=== PATIENT | male | born 1955 | race Hispanic/Latino ===

== ENCOUNTER 2017-10-12 11:20 | Inpatient (IN) | payer OTHER ==
--- NOTE | 2017-10-12 11:43 | RAD ---
FRONTAL VIEW CHEST: INDICATION: Dyspnea. FINDINGS: There is diffuse alveolar opacity and interstitial prominence throughout each lung. The cardiac silh ouette is mildly enlarged. There is engorgement of the pulmonary vasculature. No significant effusi on or discrete pneumothorax. IMPRESSION: Diffuse abnormal pulmonary parenchymal opacities may be on the basis of diffuse atypical pneumonia ve rsus pulmonary edema. Correlate clinically as well as recommend imaging followup for continued asses sment. POS: [facility]
[2017-10-12 12:03] LABS: Hemoglobin 4.7 g/dL (14.0-18.0); Mean Corpuscular Hemoglobin 18.3 pg (27.0-31.0); Mean Corpuscular Volume 70.2 fl (80.0-94.0); Mean Platelet Volume 11.2 fL (7.4-10.4); Platelet Count 151 thou/uL (130-400); RBC Distribution Width 19.4 % (11.5-14.5); Red Blood Cell (RBC) Count 2.58 mill/uL (4.70-6.10); White Blood Cell (WBC) Count 16.5 thou/uL (4.8-10.8)
[2017-10-12 12:15] LABS: Acanthocytes SLIGHT = 1-5 cells (100X) (None Seen); Anisocytosis SLIGHT = 6-15 cells (100X) (0-5/hpf); Band 1 % (5-11); Hypochromia SLIGHT = 6-15 cells (100X) (0-5/hpf); Lymphocytes 3 % (21-51); MDiff Complete? YES; Microcytosis SLIGHT = 6-15 cells (100X) (0-5/hpf); Monocytes 3 % (0-10); Neutrophil 93 % (42-75); Ovalocytes SLIGHT = 2-5 cells (100X) (0-1/hpf); PLT Morphology Comment 1; Polychromasia SLIGHT = 2-3 cells (100X) (0-2/hpf); Tear Drops SLIGHT = 2-5 cells (100X) (0-1/hpf)
[2017-10-12 12:16] LABS: ALT (SGPT) 7 U/L (8-55); AST (SGOT) 23 U/L (5-34); Albumin 3.2 g/dL (3.4-4.8); Alkaline Phosphatase 134 U/L (40-150); Anion Gap 18 mmol/L (10-20); BUN (Urea Nitrogen) 10 mg/dL (8.4-25.7); CK (CPK) 77 U/L (30-200); Calc. Creatinine Clearance 0 mL/min (70-130); Calcium 8.7 mg/dL (7.8-10.44); Carbon Dioxide 16 mmol/L (23-31); Chloride 103 mmol/L (98-107); Estimated GFR-MDRD Greater than 90; Globulin 3.1 g/dL (2.4-3.5); Glucose 122 mg/dL (80-115); Protein, Total 6.3 g/dL (5.8-8.1); Sodium 133 mmol/L (136-145)
[2017-10-12] MEDS ORDERED: ISOVUE-370 76%-LOCM 1 ML ONE (12:20)
[2017-10-12 12:21] LABS: CKMB 3.1 ng/mL (0-6.6); Troponin I 0.177 ng/mL (< 0.028)
[2017-10-12 13:04] LABS: INR-International Normal Ratio 1.6; Prothrombin Time 19.3 SEC (12.0-14.7)
[2017-10-12 13:10] LABS: Magnesium 1.8 mg/dL (1.6-2.6)
[2017-10-12] MEDS ORDERED: Pantoprazole 40 MG VIAL ONE (13:18)
[2017-10-12 13:29] LABS: Clarity Clear (Clear); Specific Gravity, Urine 1.015 (1.005-1.030)
[2017-10-12 13:30] LABS: Bilirubin Moderate (Negative); Glucose, Urine (Dipstick) Negative (Negative); Leukocyte Negative (Negative); Nitrite Negative (Negative); Protein, Urine (Dipstick) 30 mg/dL (Neg-Trace)
[2017-10-12 13:31] LABS: Blood, Urine Negative (Negative)
[2017-10-12 13:45] LABS: Bacteria/HPF None Seen HPF (None Seen); Hyaline Casts/LPF 0-3 HYALINE CAST LPF (0-3 Hyaline); Pathc Cast-AUWi Flag 0.13 (0-2.49); RBC/HPF 0-3 HPF (0-3); Squamous Epithelial 0-3 HPF (0-3); WBC/HPF 0-3 HPF (0-3)
[2017-10-12] MEDS ORDERED: Octreotide Acetate 1,250 MCG in Sodium Chloride 0.9% 250 ML 250 ML IVPB SCH (13:45)
[2017-10-12] MEDS ORDERED: Lidocaine 1% PF 5 ML VIAL ONE (13:52)
[2017-10-12] MEDS ORDERED: PROPOFOL 200 MG/20 ML VIAL ONE (13:52)
--- NOTE | 2017-10-12 14:06 | CT ---
CT ABDOMEN AND PELVIS WITH IV CONTRAST: Date: 10/12/17 HISTORY: Diarrhea, lower abdominal pain, shortness of breath. FINDINGS: There are small bilateral pleural effusions. Patchy infiltrates are seen in the visualized lung field s. There is a moderate amount of free fluid in the abdomen and pelvis consistent with ascites. Calcif ied gallstones are present. No free air or lymphadenopathy seen. The liver demonstrates irregular surface and shrinking of the right lobe consistent with cirrhosis. The spleen is enlarged, measuring 14.8 cm in length. The pancreas, adrenal glands, and kidneys are unremarkable. Vascular calcifications are present without evidence of aneurysmal dilatation of the abdominal aorta. There are degenerative changes in the spine. IMPRESSION: 1. Bilateral pleural effusions with patchy infiltrates in lower lung chaudhry. 2. Ascites. 3. Cirrhosis of liver. 4. Splenomegaly. 5. Cholelithiasis. POS: DIEGO
[2017-10-12 14:37] LABS: Iron 23 ug/dL (65-175); Iron Binding Capacity, Total 393 mcg/dL (261-462)
[2017-10-12] MEDS ORDERED: Octreotide Acetate 100 MCG/ML VIAL ONE (14:40)
[2017-10-12] MEDS ORDERED: metroNIDAZOLE 500 MG/100 ML BAG ONE (15:11)
[2017-10-12] MEDS ORDERED: Piperacillin/Tazobactam 4.5 GM in Sodium Chloride 0.9% 100 ML IVPB SCH (15:45)
[2017-10-12] MEDS ORDERED: metroNIDAZOLE 500 MG in Premix Bag 1 BAG IVPB SCH (15:45)
[2017-10-12 16:52] LABS: Lactic Acid 1.7 mmol/L (0.5-2.2)
[2017-10-12 17:31] LABS: Troponin I 0.194 ng/mL (< 0.028)
[2017-10-12] MEDS ORDERED: Promethazine HCl 25 MG/ML VIAL IM PRN (18:55)
[2017-10-12] MEDS ORDERED: Promethazine HCl 25 MG/ML VIAL SLOW IVP PRN (18:55)
[2017-10-12] MEDS ORDERED: Ondansetron HCl/PF 4 MG/2 ML Vial IVP PRN ×2 (18:55→21:49)
--- NOTE | 2017-10-12 21:38 | HP ---
PRIMARY CARE PHYSICIAN: Patient recently moved to [place]. Does not have a primary care physician at this time. CHIEF COMPLAINT: Generalized weakness with shortness of breath of 2 days' duration. HISTORY OF PRESENT ILLNESS: Patient is a 61-year-old male with cirrhosis with ongoing tobacco abuse presented to an urgent care clinic with shortness of breath that started this morning. The shortness of breath was present on mild exertion. He denied any chest pain or palpitations. He felt lightheaded; however, denies any syncope. No nausea, vomiting, hematochezia, hematemesis or abdominal discomfort reported. He was seen at the [facility] and had an EKG that was abnormal. He was then sent to the emergency room for evaluation. In the emergency room, his initial vital signs showed temperature 99.7, respiration of 18, pulse rate of 129 with a blood pressure of 128/58 with O2 saturation 95% on room air. His initial H&H was 4.7/18.1 with lactic acid of 6.7. His BNP was 1041 with troponin of 0.177. His EKG showed sinus tachycardia with nonspecific ST-T wave changes in the lateral leads. He was started on Protonix and octreotide drip. PAST MEDICAL HISTORY: 1. Chronic alcoholism. 2. Cirrhosis, diagnosed 3 years ago. The patient is currently on no medications. 3. Hypertension. 4. Ongoing tobacco abuse. PAST SURGICAL HISTORY: EGD and colonoscopy in the past. ALLERGIES: No known drug allergies. CURRENT HOME MEDICATIONS: Aleve as needed. SOCIAL HISTORY: Patient drinks liquor on a daily basis. He smokes 1 pack a day. FAMILY HISTORY: Negative for premature coronary artery disease. REVIEW OF SYSTEMS: The following complete review of systems was negative, unless otherwise mentioned in the HPI or below: Constitutional: Weight loss or gain, ability to conduct usual activities. Skin: Rash, itching. Eyes: Double vision, pain. ENT/Mouth: Nose bleeding, neck stiffness, pain, tenderness. Cardiovascular: Palpitations, dyspnea on exertion, orthopnea. Respiratory: Shortness of breath, wheezing, cough, hemoptysis, fever or night sweats. Gastrointestinal: Poor appetite, abdominal pain, heartburn, nausea, vomiting, constipation, or diarrhea. Genitourinary: Urgency, frequency, dysuria, nocturia. Musculoskeletal: Pain, swelling. Neurologic/Psychiatric: Anxiety, depression. Allergy/Immunologic: Skin rash, bleeding tendency. PHYSICAL EXAMINATION: VITAL SIGNS: As discussed above. GENERAL: A 61-year-old male currently is status post emergent EGD. HEENT: Atraumatic, normocephalic. Sclerae icteric with pale conjunctivae. No oral lesion. NECK: Supple, no JVD appreciated. No carotid bruit. LUNGS: Showed scattered rales at bases. No wheezing. There were also scattered rhonchi. HEART: S1, S2 present, tachycardic. A 2/6 systolic murmur over the mitral area. ABDOMEN: Soft, mild generalized tenderness. No rebound, guarding, no costovertebral angle tenderness. EXTREMITIES: A 2+ edema in bilateral lower extremities. No calf tenderness. SKIN: Warm and dry. LYMPH NODES: No palpable lymph nodes in the neck. PERIPHERAL VASCULAR: Radial pulses palpable bilaterally. MUSCULOSKELETAL: No joint swelling or tenderness. LABORATORY FINDINGS: CBC showed WBC 16.5 with hemoglobin 4.7, platelet count 151. INR 1.6, PT 19.3. Chemistries showed sodium 133, potassium 4, chloride 103, bicarbonate 16, BUN 10, creatinine 0.82, lactic acid 6.7. Iron of 23, TIBC 393. Ferritin was 19.1. Troponin 0.17 with BNP 1041. Lipase was normal. Stool for occult blood was positive. IMAGING: CT scan of the abdomen and pelvis with IV contrast showed bilateral pleural effusion with patchy infiltrates in the lower lung chaudhry. There was also ascites with cirrhosis of the liver, splenomegaly and cholelithiasis. EKG by my review as discussed above. Chest x-ray by my review showed the atypical pneumonia versus pulmonary edema. IMPRESSION: 1. Symptomatic anemia. 2. Acute on chronic gastrointestinal bleeding with Anemia due to GI blood loss. 3. Community-acquired pneumonia, suspected pneumococcal. 4. Lactic acidosis, probably secondary to severe anemia. 5. Abnormal EKG with elevated troponin secondary to severe anemia. 6. Elevated BNP secondary to high output congestive heart failure. 7. Bilateral pleural effusion. 8. Cirrhosis of the liver secondary to chronic alcoholism. Rule out other etiologies. 9. Ascites. 10. Coagulopathy secondary to cirrhosis. 11. Splenomegaly. 12. Cholelithiasis. 13. Ongoing tobacco abuse. 14. Hyponatremia. 15. Metabolic acidosis secondary to elevated lactate. 16. Iron deficiency anemia. 17. Leukocytosis, probably secondary to sepsis due to pneumonia. PLAN: Patient will be monitored in the IMCU. Patient just underwent EGD. Outpatient EGD report pending at this time. We will continue Protonix drip. Octreotide drip has been discontinued. Empiric antibiotics for pneumonia. Gentle IV hydration, thiamine, folic acid, multivitamins. We will monitor H&H. Plan of care was discussed with the patient and the family at the bedside. They stated understanding. MTDD
[2017-10-12] MEDS ORDERED: Lorazepam 0.5 MG TAB PO PRN (21:49)
[2017-10-12] MEDS ORDERED: Calcium Carbonate 500 MG ChewTAB PO PRN (21:49)
[2017-10-12] MEDS ORDERED: cefTRIAXone\\ROCEPHIN 1 GM in Sodium Chloride 0.9% 100 ML IVPB SCH (21:49)
[2017-10-12] MEDS ORDERED: Ondansetron ODT 4 MG TAB PO PRN (21:49)
[2017-10-12] MEDS ORDERED: Loratadine 10 MG TAB PO PRN (21:49)
[2017-10-12] MEDS ORDERED: Polyethylene Glycol 3350 17 GM Packet PO PRN (21:49)
[2017-10-12] MEDS ORDERED: Eucerin (Mineral Oil/Petrolatum,White) 30 gm Jar TOP PRN (21:49)
[2017-10-12] MEDS ORDERED: Simethicone Chewable 80 MG TAB PO PRN (21:49)
[2017-10-12] MEDS ORDERED: Mag-Al 1200 mg/1200 mg/30 ML UDCUP PO PRN (21:49)
[2017-10-12] MEDS ORDERED: Furosemide 20 MG/2 ML VIAL SLOW IVP PRN (21:49)
[2017-10-12] MEDS ORDERED: Nitroglycerin 0.4 MG TAB (25 Tab Bottle) PO PRN (21:49)
[2017-10-12] MEDS ORDERED: traMADol HCl 50 MG TAB PO PRN (21:49)
[2017-10-12] MEDS ORDERED: Doxycycline 100 MG CAP PO SCH (22:00)
--- NOTE | 2017-10-12 22:27 | CON ---
DATE OF CONSULTATION: 10/12/2017 CHIEF COMPLAINT: Shortness of breath and weakness. HISTORY OF PRESENT ILLNESS: Mr. Sim is a 61-year-old man who reports he felt very fatigued yester day and then this morning became short of breath with minimal exertion. [facility]. He was found to have severe anemia and dark stools by rectal exam and GI was con sulted to evaluate this further. He has had no nausea or vomiting. No abdominal pain. He has had 2 or 3 loose dark stools daily over the last week. He was diagnosed with cirrhosis around 3 years ago . He underwent EGD and colonoscopy at that time. He was told he had no varices. Colonoscopy was re portedly normal. He had been drinking alcohol heavily daily at that point. He quit drinking for a y ear, but then over the last year has been drinking again 3-4 drinks of vodka daily just on the weeken ds. His legs have been swelling over the last week. He did have edema in the past when he was recen tly diagnosed with cirrhosis and this was treated with diuretics. He quit drinking and he did well w ithout any problems and now he has decompensated again. PAST MEDICAL HISTORY: Cirrhosis of the liver and alcohol abuse. PAST SURGICAL HISTORY: EGD and colonoscopy back around 3 years ago in [place] and the colonoscopy was normal per his report and his 's report. FAMILY HISTORY: Negative for GI malignancy. SOCIAL HISTORY: He drinks vodka 3-4 drinks per day, some days and sometimes just on the weekends. N o smoking, no drugs. ALLERGIES: No known drug allergies. MEDICATIONS AT HOME: He takes ibuprofen 400 mg around once per week. He has taken this for the swel ling in his legs he reports. REVIEW OF SYSTEMS: Negative x10 systems reviewed except as stated in the history of present illness. PHYSICAL EXAMINATION: VITAL SIGNS: Blood pressure 112/54, pulse 117, temperature 99.6. GENERAL: He is in no acute distress. He is alert and oriented x3. HEENT: Eyes have no scleral icterus. NEUROLOGIC: He has no asterixis. OROPHARYNX: Clear, without lesions. NECK: No cervical or supraclavicular lymphadenopathy. LUNGS: Had bilateral expiratory wheezes. HEART: Tachycardic S1, S2. ABDOMEN: Soft, nontender, nondistended. Bowel sounds are present. EXTREMITIES: 1+ pitting lower extremity edema. RECTAL: Revealed black to very dark brown stool in the rectal vault. This did not appear to be larg e volume melena, however. LABORATORY DATA: White blood cell count 16.5, hemoglobin 4.7, platelets 151. INR 1.6. Iron 19.9, T IBC 393. Iron is 23. Ferritin is 19.9. Creatinine 0.82, bilirubin 5.0, albumin 3.2, AST 23, ALT 7, alkaline phosphatase 134. White blood cell count 16.5, hemoglobin 4.7, platelets 151. IMPRESSION: 1. Symptomatic anemia secondary to acute plus/minus chronic GI blood loss. He has hemoglobin of 4.7 . However, the amount of bleeding described does not match the severity of the anemia. He may have a more likely chronic blood loss. He has had no hematemesis. 2. Alcoholic cirrhosis by history. He appears decompensated with elevated bilirubin, elevated INR a nd low albumin. The creatinine is normal. He has no encephalopathy at this time. He does have lowe r extremity edema, but not significant ascites, otherwise. RECOMMENDATIONS: 1. Octreotide drip. 2. Proton pump inhibitor drip. 3. EGD. 4. IV antibiotics. 5. Send labs for evaluation for other causes of liver disease. 6. Check alpha fetoprotein and ultrasound of the liver for hepatoma screening. ADDENDUM He did have a CT scan in the emergency room that showed cirrhotic changes in the liver. Cholelithias is was incidentally noted. Moderate amount of free fluid in the abdomen and pelvis was seen.
--- NOTE | 2017-10-12 22:41 | OP ---
DATE OF PROCEDURE: 10/12/2017 PROCEDURE: Esophagogastroduodenoscopy with control of hemorrhage. PREOPERATIVE DIAGNOSIS: Symptomatic anemia and GI bleed and cirrhosis. OPERATIVE NOTE: Informed consent was obtained from the patient. He was sedated with total intraveno us anesthesia. The bite block was placed and the endoscope was advanced easily to the second portion of the duodenum and retroflexion was performed in the stomach. The esophagus was normal. The GE ju nction was normal. There were no esophageal varices. There was moderately severe portal hypertensiv e gastropathy in the body and fundus of the stomach. Gastric antral vascular ectasia was present wit h a typical watermelon appearance. There was mild intermittent active bleeding from these sites note d during the procedure. The pylorus and first portion of the duodenum were normal. There was modera tely severe erosive duodenitis with multiple 4-6 mm ulcerations in the second portion of the duodenum . There was no stigmata of recent bleeding around these areas. The more severe areas of gastric ant ral vascular ectasia were treated with argon plasma coagulation with good hemostasis confirmed. A la rge area was treated; however, this will require multiple sessions to treat this further. IMPRESSION: 1. 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 This is the most likely source for the anemia. A large area in the antrum was cauterized with argon plasma coagulation. Th is will require followup endoscopy to cauterize this further. 2. Moderately severe portal hypertensive gastropathy. 3. Severe erosive duodenitis. 4. No varices were present in the stomach or esophagus. RECOMMENDATIONS: 1. Check H. pylori antibody given the erosive duodenitis. 2. Avoid NSAIDs. 3. Alcohol cessation. 4. Follow up EGD in 3-4 weeks to treat the gastric antral vascular ectasia further. 5. Proton pump inhibitor. 6. Discontinue octreotide.
[2017-10-12] MEDS ORDERED: Sodium Ferric Gluconate 250 MG in Sodium Chloride 0.9% 250 ML 250 ML IVPB SCH (22:45)
[2017-10-12 22:53] LABS: Hemoglobin 5.9 g/dL (14.0-18.0); Platelet Count 86 thou/uL (130-400)
[2017-10-13] MEDS: Pantoprazole 80 MG in Sodium Chloride 0.9% 100 ML IVP SCH ×2 (01:59→13:06)
[2017-10-13 04:48] LABS: #Eosinphils 0.1 thou/uL (0.0-0.7); #Lymphocytes 1.2 thou/uL (1.20-3.40); #Monocytes 1.2 thou/uL (0.11-0.59); #Neutrophils 7.6 thou/uL (1.40-6.50); %Basophils 0.1 % (0.0-1.0); %Eosinophils 0.7 % (0.0-10.0); %Lymphocytes 11.9 % (21.0-51.0); %Monocytes 12.2 % (0.0-10.0); %Neutrophils 75.1 % (42.0-75.0); Mean Corpuscular Hemoglobin 22.3 pg (27.0-31.0); Mean Corpuscular Volume 76.8 fl (80.0-94.0); Mean Platelet Volume 11.6 fL (7.4-10.4); Platelet Count 92 thou/uL (130-400); RBC Distribution Width 20.4 % (11.5-14.5); Red Blood Cell (RBC) Count 3.15 mill/uL (4.70-6.10); White Blood Cell (WBC) Count 10.1 thou/uL (4.8-10.8)
[2017-10-13 05:05] LABS: ALT (SGPT) 7 U/L (8-55); AST (SGOT) 20 U/L (5-34); Albumin 2.8 g/dL (3.4-4.8); Alkaline Phosphatase 109 U/L (40-150); Anion Gap 12 mmol/L (10-20); BUN (Urea Nitrogen) 11 mg/dL (8.4-25.7); Bilirubin, Total 4.9 mg/dL (0.2-1.2); Calc. Creatinine Clearance 114 mL/min (70-130); Carbon Dioxide 21 mmol/L (23-31); Chloride 107 mmol/L (98-107); Estimated GFR-MDRD Greater than 90; Globulin 2.5 g/dL (2.4-3.5); Glucose 115 mg/dL (80-115); Magnesium 1.5 mg/dL (1.6-2.6); Phosphorus 2.8 mg/dL (2.3-4.7); Potassium 3.5 mmol/L (3.5-5.1); Protein, Total 5.3 g/dL (5.8-8.1); Sodium 136 mmol/L (136-145)
[2017-10-13 05:22] LABS: HBSAg Index 0.22 S/CO (0-0.99); Hep B Core Total Ab Non-Reactive (NonReactive); Hep B Core Total Index 0.23 S/CO (0-0.79); Hep B Surf Ag Non-Reactive S/CO (NonReactive); Hep C IgG Ab Non-Reactive (NonReactive); Hep C Index 0.22 S/CO (0-0.79)
[2017-10-13 06:09] LABS: HBSAB Concentration 53.01 mIU/mL; Hep B Surf AB Reactive (NonReactive)
--- NOTE | 2017-10-13 07:53 | ULT ---
RIGHT UPER QUADRANT ULTRASOUND: DATE: 10/13/17. COMPARISON: None. HISTORY: Cirrhosis and jaundice. TECHNIQUE: Multiplanar, sainz scale sonographic imaging of the right upper quadrant obtained. FINDINGS: The hepatic parenchyma is heterogeneous and the peripheral contour of the liver is irregular, consist ent with the provided history of cirrhosis. There is small/moderate volume ascites in the perihepati c region. There is slow flow within the portal vein. Partially visualized right pleural effusion no brennan. Nonspecific gallbladder wall thickening is noted. Cholelithiasis is noted as well. The right kidney is only partially imaged and appears grossly unremarkable. CBD is not discretely vi sualized on this exam. IMPRESSION: Cirrhotic liver. Ascites. Cholelithiasis with gallbladder wall thickening. Gallbladder wall thicke mil is likely on the basis of liver disease. Clinical correlation is required. The right upper quadrant is better assessed on CT exam performed 10/12/17. POS: [facility]
[2017-10-13] MEDS ORDERED: Doxycycline 100 MG CAP PO SCH ×2 (09:00→14:00)
[2017-10-13] MEDS ORDERED: Magnesium Sulfate 2 GM in Sodium Chloride 0.9% 100 ML IVPB SCH (09:45)
[2017-10-13] MEDS: Cyanocobalamin (Vitamin B-12) 1,000 MCG TAB PO SCH (09:45)
[2017-10-13] MEDS: Folic Acid 1 MG TAB PO SCH (09:45)
[2017-10-13] MEDS: Multivit, Therapeutic 1 TAB PO SCH (09:45)
[2017-10-13] MEDS ORDERED: Magnesium 2 GM/NS 0.9% 100 ML 2 GM in Premix Bag 1 BAG IVPB SCH (10:00)
[2017-10-13] MEDS ORDERED: Benzocaine 20% Spray 60 ML CAN ONE (11:11)
[2017-10-13] MEDS: Acetaminophen 325 MG TAB PO PRN ×3 (12:32→23:15)
[2017-10-13] MEDS ORDERED: cefTRIAXone\\ROCEPHIN 1 GM, Syringe 0.4 ML in Sterile Water 9.6 ML SLOW IVP SCH (13:00)
--- NOTE | 2017-10-13 13:42 | PDOC.PN ---
- Subjective Encounter Start Date: 10/13/17 Encounter Start Time: 13:00 Patient seen and examined. SOB + that somewhat improved with nebs. No overnight events - Objective Resuscitation Status: Resuscitation Status FULL:Full Resuscitation MAR Reviewed: Yes Vital Signs & Weight: Vital Signs (12 hours) Temp Pulse Resp BP BP BP BP 10/13/17 12:00 100.8 F H 115 H 24 H 126/58 L 133/65 10/13/17 10:37 115 H 22 H 10/13/17 08:00 100.0 F H 110 H 24 H 148/66 H 10/13/17 07:34 100.0 F H 110 H 24 H 148/66 H 10/13/17 04:28 135/69 10/13/17 04:12 99.4 F 111 H 22 H 135/69 142/69 H 151/57 H 10/13/17 02:27 99.2 F 108 H 18 130/66 10/13/17 02:02 109 H 20 121/71 Pulse Ox 10/13/17 12:00 90 L 10/13/17 10:37 96 10/13/17 08:00 90 L 10/13/17 07:34 89 L 10/13/17 04:28 10/13/17 04:12 10/13/17 02:27 96 10/13/17 02:02 95 I&O: 10/12/17 10/13/17 10/14/17 06:59 06:59 06:59 Intake Total 910 Output Total 500 Balance 410 Result Diagrams: 10/13/17 15:53 10/13/17 04:09 Radiology Reviewed by me: No (RUQ USG - cholelithiasis) EKG Reviewed by me: Yes (Tele ST) Phys Exam - Physical Examination Pt in mild resp distress Respiratory: no wheezing Bibasilar rales with scat rhonchi, Accessory muscle use + Cardiovascular: RRR, no rub Tachycardic, no heaves/pulsations Gastrointestinal: soft, positive bowel sounds mild gen tenderness Musculoskeletal: edema present (2 +) Neurological: non-focal, moves all 4 limbs Psychiatric: A&O x 3 Dx/Plan - Plan DVT proph w/SCDs IMPRESSION: 1. Symptomatic anemia. s/p 3 unit PRBC 2. Acute on chronic gastrointestinal bleeding with Anemia due to GI blood loss. 3. Community-acquired pneumonia, suspected pneumococcal. on Ceftriaxone/Doxy 4. Resp distress prob due to Volume overload/Pleural effusions. 5. Abnormal EKG with elevated troponin secondary to severe anemia. 6. Elevated BNP secondary to high output congestive heart failure. 7. Bilateral pleural effusion. 8. Cirrhosis of the liver secondary to chronic alcoholism. Rule out other etiologies. 9. Ascites. 10. Coagulopathy secondary to cirrhosis. 11. Splenomegaly. 12. Cholelithiasis. 13. Ongoing tobacco abuse. Counselled. 14. Hyponatremia. 15. Metabolic acidosis secondary to elevated lactate. 16. Iron deficiency anemia. 17. Leukocytosis, probably secondary to sepsis due to pneumonia. 18. Hypomagnessemia 19. Lactic acidosis, probably secondary to severe anemia. resolved PLAN: * Lasix 20 mg IV x 1 * Replace Mg * AM labs * Repeat HH later today * Consult Critical care * Cont current meds as below * Monitor for alcohol withdrawal. * Transfuse PRN if HH <7 - Will probably need Lasix prior to transfusion * Portable CXR today * Await Echo Laboratory Tests 10/13/17 04:09 Magnesium 1.5 L Review of Systems - Review of Systems Constitutional: fever Respiratory: SOB with Excertion. negative: Cough, Dry, Shortness of Breath, Hemoptysis, Pleuritic Pain, Sputum, Wheezing Cardiovascular: negative: chest pain, palpitations, orthopnea, paroxysmal nocturnal dyspnea, edema, light headedness - Medications/Allergies Allergies/Adverse Reactions: Allergies Allergy/AdvReac Type Severity Reaction Status Date / Time No Known Allergies Allergy Verified 10/12/17 22:05 Medications: Current Medications Acetaminophen (Tylenol) 325 mg PO Q6H PRN PRN Reason: Headache/Fever or Pain Last Admin: 10/13/17 12:32 Dose: 325 mg Al Hydroxide/Mg Hydroxide (Maalox) 30 ml PO Q6H PRN PRN Reason: Heartburn or Indigestion Albuterol/Ipratropium (Duoneb) 3 ml NEB [id number] PRN PRN Reason: SOB &/or Wheezing Last Admin: 10/13/17 10:37 Dose: 3 ml Albuterol/Ipratropium (Duoneb) 3 ml NEB [id number] PRN PRN Reason: SOB &/or Wheezing Calcium Carbonate (Tums) 1,000 mg PO Q4H PRN PRN Reason: Heartburn or Indigestion Cyanocobalamin (Vitamin B-12) 1,000 mcg PO DAILY FOR[facility]LY [facility], [facility] Last Admin: 10/13/17 09:45 Dose: 1,000 mcg Doxycycline Hyclate (Vibramycin) 100 mg PO BID [facility], [facility]1983 Folic Acid (Folvite) 1 mg PO 0900 [facility], [facility] Last Admin: 10/13/17 09:45 Dose: 1 mg Furosemide (Lasix) 40 mg PO DAILY-AC [facility] Furosemide (Lasix) 20 mg SLOW IVP Q8HR PRN PRN Reason: Resp distress Pantoprazole Sodium 80 mg/ (Sodium Chloride) 100 mls @ 10 mls/hr IVP INF [facility], [facility] Last Admin: 10/13/17 13:06 Dose: 100 mls Ceftriaxone Sodium 1 gm/ (Syringe 0.4 ml/ Sterile Water) 10 mls @ 120 mls/hr SLOW IVP 1300 [facility] Last Admin: 10/13/17 13:09 Dose: 10 mls Loratadine (Claritin) 10 mg PO DAILYPRN PRN PRN Reason: Sinus Symptoms Lorazepam (Ativan) 0.5 mg PO Q4H PRN PRN Reason: ASE >9 Mineral Oil/White Petrolatum (Eucerin Cream) 0 gm TOP BIDPRN PRN PRN Reason: Dry Skin Multivitamins (Theragran) 1 tab PO DAILY [facility] Last Admin: 10/13/17 09:45 Dose: 1 tab Nitroglycerin (Nitrostat) 0.4 mg PO Q5MIN PRN PRN Reason: Chest Pain Ondansetron HCl (Zofran Odt) 4 mg PO Q6H PRN PRN Reason: Nausea/Vomiting Ondansetron HCl (Zofran) 4 mg IVP Q6H PRN PRN Reason: Nausea/Vomiting Pneumococcal Polyvalent Vaccine (Pneumovax 23) 0.5 ml IM .ONCE ONE Stop: 10/14/17 09:01 Polyethylene Glycol (Miralax) 17 gm PO DAILY PRN PRN Reason: Constipation Simethicone (Mylicon Chewable) 80 mg PO PCHS PRN PRN Reason: Gas Pain Sodium Chloride (Flush - Normal Saline) 10 ml IVF Q12HR [facility] Last Admin: 10/13/17 09:45 Dose: 10 ml Sodium Chloride (Flush - Normal Saline) 10 ml IVF PRN PRN PRN Reason: Saline Flush Spironolactone (Aldactone) 25 mg PO BID-[facility] Thiamine HCl (Thiamine) 100 mg PO DAILY [facility] Last Admin: 10/13/17 09:45 Dose: 100 mg Tramadol HCl (Ultram) 50 mg PO Q8H PRN PRN Reason: Moderate Pain (4-6)
[2017-10-13] MEDS ORDERED: Furosemide 20 MG/2 ML VIAL SLOW IVP PRN (14:00)
--- NOTE | 2017-10-13 15:17 | RAD ---
PORTABLE CHEST ONE VIEW: Date: 10-13-17 Time: 2:51 p.m. History: Shortness of breath FINDINGS: Comparison made with exam from the previous day. Interval worsening of the bilateral infiltrates has occurred since the previous day's exam. No pneumo thoraces or large effusions are seen. The heart size is stable. POS: [facility]
[2017-10-13] MEDS: Doxycycline 100 MG CAP PO SCH (16:06)
[2017-10-13] MEDS: Clindamycin/D5W 600 MG in Premix Bag 1 BAG IVPB SCH ×2 (16:06→23:15)
[2017-10-13] MEDS: Spironolactone 25 MG TAB PO SCH (16:06)
[2017-10-13 16:09] LABS: Hemoglobin 6.9 g/dL (14.0-18.0)
--- NOTE | 2017-10-13 18:37 | PRG ---
DATE OF SERVICE: 10/13/2017 SUBJECTIVE: He feels like he is breathing better after receiving some Lasix today; however, he still is tachypneic. He has had no further black stool output. PHYSICAL EXAMINATION: VITAL SIGNS: Maximum temperature 101.2, pulse 114, respirations 26, blood pressure 139/52. GENERAL: He is tachypneic. He is not in acute distress. LUNGS: His lungs have scattered wheezes bilaterally. HEART: Tachycardic S1, S2. ABDOMEN: Soft, nontender, nondistended, bowel sounds are present. EXTREMITIES: 1+ pitting lower extremity edema. LABORATORY DATA: Creatinine 0.75, bilirubin 4.9, albumin 2.8. Alpha fetoprotein was 4. IMPRESSION: 1. Cirrhosis of the liver secondary to chronic alcohol use. He was actively drinking up until this hospital stay. 2. Gastrointestinal bleed. This appears to be more of a chronic bleed; however, he did have very da rk stools on presentation. Endoscopy showed gastric antral vascular ectasia. This was cauterized wi th argon plasma coagulation. However, we will require further cautery to treat this large area of va scular ectasias. 3. Hepatoma screening. Ultrasound is negative for liver mass. Alpha fetoprotein is normal. 4. Bilateral pulmonary infiltrates with fever. He is on broad-spectrum antibiotics for that. RECOMMENDATIONS: 1. Await viral hepatitis labs. 2. I would give another unit of blood in the morning. Since he is already significantly tachypneic and tachycardic and felt better after Lasix, I will hold off adding additional blood transfusion ann ght. He is feeling better than he was yesterday; however. 3. Change pantoprazole to oral administration. 4. We will start a low-salt diet to and he can advance diet as he tolerates. 5. Follow up in GI clinic in 2 weeks. We will need to plan followup endoscopy in 3-4 weeks to caute rize the gastric antral vascular ectasia further. 6. Alcohol cessation is advised. 7. I will sign off for now. Please call if GI can be of assistance.
--- NOTE | 2017-10-14 02:25 | CON ---
DATE OF CONSULTATION: 10/13/2017 HISTORY OF PRESENT ILLNESS: Sanford Sim is a 61-year-old [place] gentleman, history is obtain ed from talking to the patient, talking to his , who is at the bedside who was very helpful. Reason for consultation is bilateral bronchopneumonia, who has been admitted to the hospital with a G I bleed. He came in last night. GI has seen him and he underwent upper GI endoscopy. He has a longstanding history of alcoholic liver disease, drinking for many years, and still apparent ly drinking. Still smoking half pack a day, now is having difficulty breathing, coughing up some grossly purulent sputum. Denies any chest pain, chills, or sweats. PAST MEDICAL HISTORY: Hypertension, cirrhosis, chronic alcoholism. PAST SURGICAL HISTORY: EGD. ALLERGIES: None. CHRONIC MEDICATIONS: At home, ibuprofen as per the . SOCIAL HISTORY: Alcohol, tobacco abuse as noted, a pack a day. Presently unemployed. FAMILY HISTORY: Otherwise unremarkable. REVIEW OF SYSTEMS: Otherwise, extensive 10-point negative. SOCIAL HISTORY: He just recently moved from out of town. PHYSICAL EXAMINATION: VITAL SIGNS: Sats are 93% on 3 liters, respirations 14, temperature , blood pressure 120/68. LUNGS: Chest reveals bilateral rhonchi and crackles. CARDIAC: Sinus tachycardia. ABDOMEN: Ascites. LABORATORY DATA AND IMAGING: White count 10,000, H&H 7 and 24, platelet count is 92. Electrolytes a re normal. X-ray shows bilateral pleural effusion. Ultrasound of the abdomen shows chronic cirrhoti c liver with ascites. Please note I reviewed all report and x-rays personally. Cultures so far nega tive. IMPRESSION: 1. Upper gastrointestinal bleed. 2. Alcoholic liver disease. 3. Status post endoscopy for worsening bilateral pulmonary infiltrates, aspiration pneumonia. He jesus d evidence of portal hypertension, severe duodenitis, no varices were seen. PLAN: Continue ceftriaxone. I have added clindamycin, neb treatments. Advised to refrain from smok ing. If condition gets worse, he may require intubation. This is a consultation note, 70 minutes of which 50% of my time spent directly with the patient at [facility].
[2017-10-14 05:21] LABS: Anion Gap 11 mmol/L (10-20); BUN (Urea Nitrogen) 8 mg/dL (8.4-25.7); Calc. Creatinine Clearance 123 mL/min (70-130); Calcium 7.9 mg/dL (7.8-10.44); Carbon Dioxide 23 mmol/L (23-31); Chloride 106 mmol/L (98-107); Estimated GFR-MDRD Greater than 90; Glucose 101 mg/dL (80-115); Magnesium 1.8 mg/dL (1.6-2.6); Phosphorus 2.7 mg/dL (2.3-4.7); Sodium 137 mmol/L (136-145)
[2017-10-14 05:25] LABS: Potassium 2.8 mmol/L (3.5-5.1)
[2017-10-14 05:51] LABS: Band 3 % (5-11); Eosinophils 2 % (0-10); Hypochromia SLIGHT = 6-15 cells (100X) (0-5/hpf); Lymphocytes 7 % (21-51); MDiff Complete? YES; Mean Corpuscular HGB CONC 28.4 g/dL (32.0-36.0); Mean Corpuscular Volume 77.5 fl (80.0-94.0); Mean Platelet Volume 6.1 fL (7.4-10.4); Metamyelocyte 1 % (0-0); Monocytes 9 % (0-10); Myelocyte 2 % (0-0); Neutrophil 75 % (42-75); Nucleated RBC 2 % (0); PLT Morphology Comment Appears Decreased; Platelet Count 104 thou/uL (130-400); Polychromasia MODERATE = 3-4 cells (100X) (0-2/hpf); RBC Distribution Width 21.4 % (11.5-14.5); Reactive Lymphocytes 1 % (0-10); White Blood Cell (WBC) Count 12.8 thou/uL (4.8-10.8)
[2017-10-14] MEDS ORDERED: Potassium Chloride 20 MEQ TAB PO SCH ×2 (06:30→15:00)
[2017-10-14] MEDS ORDERED: Furosemide 40 MG TAB PO SCH (07:30)
--- NOTE | 2017-10-14 07:53 | RAD ---
PORTABLE UPRIGHT FRONTAL CHEST RADIOGRAPH: Date: 10-14-17 Comparison: 10-13-17 History: Shortness of breath. Pneumonia. FINDINGS: There are coarse interstitial opacities throughout both lungs with superimposed areas of airspace dis ease noted in bilateral perihilar regions, the left midlung zone, and the right upper lobe. There has been no significant interval change. No pneumothorax or large volume pleural effusion. IMPRESSION: Prominent nonspecific diffuse interstitial and alveolar opacity. Findings suggest multifocal infectio us pneumonitis or aspiration. A degree of edema cannot be excluded. Follow up to resolution advised. POS: [facility]
[2017-10-14] MEDS ORDERED: Potassium Chloride 20 MEQ/100 ML PREMIX BAG IVPB SCH (08:30)
[2017-10-14] MEDS: Cyanocobalamin (Vitamin B-12) 1,000 MCG TAB PO SCH (08:34)
[2017-10-14] MEDS: Multivit, Therapeutic 1 TAB PO SCH (08:34)
[2017-10-14] MEDS: Doxycycline 100 MG CAP PO SCH (08:34)
[2017-10-14] MEDS: Saccharomyces boulardii 250 MG CAP PO SCH (08:34)
[2017-10-14] MEDS: Spironolactone 25 MG TAB PO SCH (08:35)
[2017-10-14] MEDS: Clindamycin/D5W 600 MG in Premix Bag 1 BAG IVPB SCH ×3 (08:35→23:01)
[2017-10-14] MEDS: Folic Acid 1 MG TAB PO SCH (08:35)
[2017-10-14] MEDS ORDERED: Lacri-Lube Opth Oint 3.5 GM TUBE EA EYE PRN (09:36)
[2017-10-14] MEDS ORDERED: CCU Electrolyte Replacement 1 EACH IVPB ONE (09:36)
--- NOTE | 2017-10-14 09:39 | PRG ---
DATE OF SERVICE: 10/14/2017 His sats are in the 50%, barely 90, blood pressure is 146/60, respiratory rate is about 30, pulse 120 , temperature 99. He is currently having difficulty breathing, using accessory muscles. CHEST: Extensive rhonchi, crackles and wheezing. CARDIAC: Sinus tachycardia. ABDOMEN: Distended. LABORATORY: White count 12,000, H&H 7 and 24, platelet count 104, potassium 2.8 Electrolytes are nor mal. IMPRESSION: 1. Respiratory failure. 2. Adult respiratory distress syndrome, probably aspiration. 3. Cirrhosis, ascites. 4. Gastrointestinal bleed. His echo showed EF was normal. Clearly he has got ARDS with worsening oxygenation. PLAN: He could transfer down to the ICU, I am going to start him on some neb treatments, steroids. He may need to be intubated. Discussed with family. One-half hour critical care time.
[2017-10-14] MEDS ORDERED: Sedation Protocol FS ONE (09:41)
[2017-10-14] MEDS ORDERED: Dextrose 5 %-0.45 % NaCl 1,000 ML IV SCH (09:45)
[2017-10-14] MEDS ORDERED: Magnesium Oxide 400 MG TAB PO PRN ×2 (09:48)
[2017-10-14] MEDS ORDERED: Potassium Phosphate 9 MMOL in Sodium Chloride 0.9% 100 ML IVPB PRN (09:48)
[2017-10-14] MEDS ORDERED: Magnesium 2 GM/NS 0.9% 100 ML 2 GM in Premix Bag 1 BAG IVPB PRN (09:48)
[2017-10-14] MEDS ORDERED: Potassium Chloride 20 MEQ TAB PO PRN (09:48)
[2017-10-14] MEDS ORDERED: Potassium Phosphate 15 MMOL in Sodium Chloride 0.9% 250 ML 250 ML IV PRN (09:48)
[2017-10-14] MEDS ORDERED: Potassium Chloride 40 MEQ in Premix Bag 1 BAG IVPB PRN (09:48)
[2017-10-14] MEDS ORDERED: Potassium Phosphate 12 MMOL in Sodium Chloride 0.9% 250 ML 250 ML IV PRN (09:48)
[2017-10-14] MEDS ORDERED: Potassium Chloride 40 MEQ in Sodium Chloride 0.9% 250 ML 250 ML IVPB PRN (09:48)
[2017-10-14] MEDS ORDERED: CCU ELECTROLYTE REPLACEMENT PROTOCOL FS PRN (09:48)
[2017-10-14] MEDS ORDERED: Morphine 2 MG/ML SYRINGE SLOW IVP PRN (09:51)
[2017-10-14] MEDS ORDERED: Fentanyl BOLUS 250 ML IVPB PRN (09:51)
[2017-10-14] MEDS ORDERED: Lorazepam 2 MG/ML VIAL SLOW IVP PRN (09:51)
[2017-10-14] MEDS ORDERED: Midazolam HCl 2 mg/2 ml Vial ONE (11:33)
[2017-10-14] MEDS ORDERED: Propofol 1,000 MG/100 ML VIAL IV ONE (11:33)
--- NOTE | 2017-10-14 12:02 | OP ---
DATE OF PROCEDURE: 10/14/2017 This is a one-half hour critical care time exclusive of the intubation. SURGEON: Dr. Darci Quinn PROCEDURE: Bronchoscopy and lavage. The patient had progressively worsening respiratory failure. X-ray showing diffuse ARDS. He was tra nsferred to the ICU. Still having difficulty breathing on 100% nonrebreather. Even though his sats were better he had extensive crackles. Pulse was 120 and blood pressure 180. It was felt he needed to be intubated. He was given 2 of Vers ed and a total of 8 of morphine, a 7.5 endotracheal tube was placed over the bronchoscope, passed ove r the vocal cords. Prior to that there was large volume of dirty brownish secretion in the back of t he throat. Tube was secured. He was given sedation with Diprivan for sedation and connected to a warm cycle res pirator. After his oxygen saturation improved back in the 90s, the bronchoscope passed to lavage both lungs be cause of diffuse pulmonary infiltrates. Right lung was inspected initially. The right upper and middle no endobronchial disease was seen. C opious amount of frothy secretion was suctioned and lavaged until clear. Left lung once again; left upper and left lower no endobronchial disease, frothy secretions, dirty brown were aspirated. The wa shings will be sent for Gram stain and C&S. The patient is now connected to warm cycle respirator. Washings will be sent for Gram stain and C&S. Please note one-half hour critical care time exclusive of the bronchoscopy, intubation and lavage.
[2017-10-14] MEDS: Morphine 4 MG/ML Carpuject ONE ×2 (12:04→12:05)
[2017-10-14 12:32] LABS: Actual Bicarbonate (HCO3a) 24.1 mEq/L (22-26); Base Excess (BEa) -2.1 mEq/L (0 (+/-) 2.5); Hemoglobin (Hb) 6.5 g/dL (14.0-18.0); O2 Tension (PaO2) 215.6 mmHg (80.0-100.0); pH, Arterial 7.31 (7.35-7.45)
[2017-10-14] MEDS: Piperacillin/Tazobactam 3.375 GM in Sodium Chloride 0.9% 100 ML IVPB SCH ×3 (12:32→21:11)
[2017-10-14 12:33] LABS: Calcium, Ionized 1.2 mmol/L (1.12-1.30); Puncture Site LRA
[2017-10-14] MEDS: fentaNYL Citrate/PF 2,000 MCG in Sodium Chloride 0.9% 60 ML IV PRN (12:40)
[2017-10-14] MEDS: Furosemide 20 MG/2 ML VIAL SLOW IVP SCH (13:39)
[2017-10-14] MEDS: Propofol 1,000 MG/100 ML VIAL IV PRN ×2 (15:29→19:28)
[2017-10-14] MEDS: Spironolactone 25 MG TAB PER TUBE SCH (15:30)
[2017-10-14] MEDS: Sodium Chloride 0.9% 1,000 ML IV SCH (15:45)
[2017-10-14 16:21] LABS: Hemoglobin 6.7 g/dL (14.0-18.0)
[2017-10-14 16:29] LABS: Potassium 3.6 mmol/L (3.5-5.1)
--- NOTE | 2017-10-14 16:54 | PDOC.PN ---
- Subjective Encounter Start Date: 10/14/17 Encounter Start Time: 14:30 Patient seen and examined. Intubated earlier due to resp distress. No overnight events - Objective Resuscitation Status: Resuscitation Status FULL:Full Resuscitation MAR Reviewed: Yes Vital Signs & Weight: Vital Signs (12 hours) Temp Pulse Resp BP BP Pulse Ox 10/14/17 16:00 99.2 F 29 H 10/14/17 15:24 109 H 107/58 L 10/14/17 15:17 107 H 29 H 93 L 10/14/17 12:53 98.9 F 10/14/17 12:23 119 H 141/78 H 10/14/17 12:00 98.9 F 115 H 20 95 10/14/17 09:36 94 L 10/14/17 08:31 121 H 22 H 10/14/17 08:00 99.6 F 121 H 22 H 90 L 10/14/17 07:16 99.8 F H 117 H 22 H 146/66 H 90 L Weight Admit Weight 172 lb 8 oz Weight 177 lb 1.6 oz Most Recent Monitor Data Heart Rate from ECG 112 NIBP 101/48 NIBP BP-Mean 62 Respiration from ECG 18 SpO2 92 I&O: 10/13/17 10/14/17 10/15/17 06:59 06:59 06:59 Intake Total 910 1130 60 Output Total 500 1300 865 Balance 410 170 805 Result Diagrams: 10/14/17 16:06 10/14/17 16:06 Radiology Reviewed by me: Yes (CXR - multifocal pneumonia) EKG Reviewed by me: Yes (Tele ST) Phys Exam - Physical Examination Pt intubated/sedated Respiratory: no wheezing B/L rales/rhonchi olman at bases, Intubated, dec dullness to percussion base Cardiovascular: RRR, no rub no heaves/pulsations Gastrointestinal: soft, non-tender, no distention, positive bowel sounds Musculoskeletal: edema present (improving) Neuro/Psych - cannot assess due to sedation Dx/Plan - Plan DVT proph w/SCDs (no Lovenox due to recent GI bleed/coagulopathy) IMPRESSION: 1. Symptomatic anemia/Acute on chronic gastrointestinal bleeding 2. Acute hypoxic resp failure/Sepsis due to multifocal pneumonia ?Aspiration with Pleural effusions. 3. Anemia due to GI blood loss. s/p 3 unit PRBC 4. Resp distress prob due to Volume overload/ 5. Abnormal EKG with elevated troponin secondary to severe anemia. 6. Ascites/Coagulopathy/Splenomegaly secondary to alcoholic cirrhosis. 7. Hypokalemia 8. Cholelithiasis./Ongoing tobacco abuse. Counselled./Hyponatremia./ Metabolic acidosis secondary to elevated lactate./Iron deficiency anemia./ Hypomagnessemia /Lactic acidosis, probably secondary to severe anemia. resolved PLAN: * Cont Lasix with Spironolactone * Replace Potassium * AM labs * Critical care monitoring * Critical care following * Cont current meds as below * Monitor for alcohol withdrawal * Transfuse PRN if HH <7 * Change Ceftriaxone to Zosyn * Consult Palliative care team Review of Systems - Review of Systems Other: Cannot obtain due to current mentation - Medications/Allergies Allergies/Adverse Reactions: Allergies Allergy/AdvReac Type Severity Reaction Status Date / Time No Known Allergies Allergy Verified 10/12/17 22:05 Medications: Current Medications Acetaminophen (Tylenol) 325 mg PO Q6H PRN PRN Reason: Headache/Fever or Pain Last Admin: 10/13/17 23:15 Dose: 325 mg Al Hydroxide/Mg Hydroxide (Maalox) 30 ml PO Q6H PRN PRN Reason: Heartburn or Indigestion Albuterol/Ipratropium (Duoneb) 3 ml NEB [id number] [facility] Last Admin: 10/14/17 15:17 Dose: 3 ml Albuterol/Ipratropium (Duoneb) 3 ml NEB Q4H PRN PRN Reason: SOB &/or Wheezing Calcium Carbonate (Tums) 1,000 mg PO Q4H PRN PRN Reason: Heartburn or Indigestion Cyanocobalamin (Vitamin B-12) 1,000 mcg PO DAILY [facility] Last Admin: 10/14/17 08:34 Dose: 1,000 mcg Folic Acid (Folvite) 1 mg PO 0900 [facility] Last Admin: 10/14/17 08:35 Dose: 1 mg Furosemide (Lasix) 20 mg SLOW IVP Q8HR PRN PRN Reason: Resp distress Last Admin: 10/14/17 08:36 Dose: 20 mg Furosemide (Lasix) 20 mg SLOW IVP 0600,1400 [facility] Last Admin: 10/14/17 13:39 Dose: 20 mg Clindamycin Phosphate/Dextrose (600 mg/ Device) 50 mls @ 100 mls/hr IVPB 0800, 1600,2359 [facility] Last Admin: 10/14/17 15:31 Dose: 50 mls Piperacillin Sod/Tazobactam (Sod 3.375 gm/ Sodium Chloride) 100 mls @ 200 mls/ hr IVPB 0400,1000,1600,2200 [facility] Last Admin: 10/14/17 15:31 Dose: 100 mls Potassium Chloride 40 meq/ (Sodium Chloride) 270 mls @ 135 mls/hr IVPB ASDIR PRN PRN Reason: FOR SERUM K+ 2.5 - 3.5 Potassium Chloride 40 meq/ (Device) 100 mls @ 50 mls/hr IVPB ASDIR PRN PRN Reason: FOR SERUM K+ 2.5 - 3.5 Magnesium Sulfate 1 gm/ Sodium (Chloride) 102 mls @ 102 mls/hr IV PRN PRN PRN Reason: MAG LEVEL 1.4 - 2.0 Magnesium Sulfate 2 gm/ Device 100 mls @ 100 mls/hr IVPB ASDIR PRN PRN Reason: MAGNESIUM < 1.4 Potassium Phosphate 9 mmol/ (Sodium Chloride) 103 mls @ 25.75 mls/hr IVPB ASDIR PRN PRN Reason: Phosphate 1.0-1.8 Potassium Phosphate 12 mmol/ (Sodium Chloride) 254 mls @ 63.5 mls/hr IV ASDIR PRN PRN Reason: Serum phosphate 0.5-0.9 Potassium Phosphate 15 mmol/ (Sodium Chloride) 255 mls @ 63.75 mls/hr IV ASDIR PRN PRN Reason: Serum Phos < 0.5 Fentanyl Citrate (Fentanyl Bolus) 250 mls @ 0 mls/hr IVPB PRN PRN; As Directed PRN Reason: Breakthrough pain Stop: 11/13/17 09:51 Fentanyl Citrate 2,000 mcg/ (Sodium Chloride) 100 mls @ 0 mls/hr IV INF PRN; As Directed PRN Reason: Pain Last Admin: 10/14/17 12:40 Dose: 100 mls Sodium Chloride (Normal Saline 0.9%) 1,000 mls @ 50 mls/hr IV .Q20H [facility] Last Admin: 10/14/17 15:45 Dose: Not Given Loratadine (Claritin) 10 mg PO DAILYPRN PRN PRN Reason: Sinus Symptoms Lorazepam (Ativan) 2 mg SLOW IVP Q2H PRN PRN Reason: Anxiety to achieve [place] 2-3 Stop: 11/13/17 09:51 Magnesium Oxide (Magnesium Oxide) 400 mg PO BIDPRN PRN PRN Reason: FOR SERUM MAG 1.4 - 2.0 Magnesium Oxide (Magnesium Oxide) 800 mg PO PRN PRN PRN Reason: FOR SERUM MAG < 1.4 Methylprednisolone Sodium Succinate (Solu-Medrol) 40 mg IVP Q6HR [facility] Last Admin: 10/14/17 10:02 Dose: 40 mg Mineral Oil/White Petrolatum (Eucerin Cream) 0 gm TOP BIDPRN PRN PRN Reason: Dry Skin Mineral Oil/White Petrolatum (Lacri-Lube Ointment) 0 gm EA EYE PRN PRN PRN Reason: Dry Eyes Miscellaneous Medication (Phos-Nak) 1 pkt PO TIDPRN PRN PRN Reason: FOR PHOS LEVEL 1.0 - 1.8 Miscellaneous Medication (Phos-Nak) 2 pkt PO TIDPRN PRN PRN Reason: FOR PHOS LEVEL 0.5 - 1.0 Morphine Sulfate (Morphine) 2 mg SLOW IVP Q2H PRN PRN Reason: Breakthrough pain Stop: 11/13/17 09:51 Multivitamins (Theragran) 1 tab PO DAILY [facility] Last Admin: 10/14/17 08:34 Dose: 1 tab Nitroglycerin (Nitrostat) 0.4 mg PO Q5MIN PRN PRN Reason: Chest Pain Ondansetron HCl (Zofran Odt) 4 mg PO Q6H PRN PRN Reason: Nausea/Vomiting Ondansetron HCl (Zofran) 4 mg IVP Q6H PRN PRN Reason: Nausea/Vomiting Pantoprazole Sodium (Protonix) 40 mg IVP Q12HR [facility] Polyethylene Glycol (Miralax) 17 gm PO DAILY PRN PRN Reason: Constipation Potassium Chloride (K-Dur) 40 meq PO ASDIR PRN PRN Reason: FOR SERUM K+ 2.5 - 3.5 Potassium Chloride (Klor-Con) 40 meq PER TUBE ASDIR PRN PRN Reason: FOR SERUM K+ 2.5-3.5 Propofol (Diprivan) 1,000 mg IV INF PRN; Protocol PRN Reason: TO ACHIEVE HERNDON SCORE 2-3 Stop: 11/13/17 09:51 Last Admin: 10/14/17 15:29 Dose: 1,000 mg Saccharomyces Boulardii (Florastor) 250 mg PO DAILY [facility] Last Admin: 10/14/17 08:34 Dose: 250 mg Simethicone (Mylicon Chewable) 80 mg PO PCHS PRN PRN Reason: Gas Pain Sodium Chloride (Flush - Normal Saline) 10 ml IVF Q12HR [facility] Last Admin: 10/14/17 10:52 Dose: Not Given Sodium Chloride (Flush - Normal Saline) 10 ml IVF PRN PRN PRN Reason: Saline Flush Spironolactone (Aldactone) 25 mg PER TUBE BID-WM [facility] Last Admin: 10/14/17 15:30 Dose: 25 mg Thiamine HCl (Thiamine) 100 mg PO DAILY [facility] Last Admin: 10/14/17 08:35 Dose: 100 mg Tramadol HCl (Ultram) 50 mg PO Q8H PRN PRN Reason: Moderate Pain (4-6)
[2017-10-14] MEDS: Vecuronium 10 MG VIAL IV PRN ×2 (17:34→20:17)
[2017-10-14] MEDS: Pantoprazole 40 MG VIAL IVP SCH (19:59)
[2017-10-15] MEDS: Vecuronium 10 MG VIAL IV PRN ×4 (01:17→16:37)
[2017-10-15] MEDS: Propofol 1,000 MG/100 ML VIAL IV PRN ×2 (01:47→15:45)
[2017-10-15] MEDS: Piperacillin/Tazobactam 3.375 GM in Sodium Chloride 0.9% 100 ML IVPB SCH ×4 (03:14→21:40)
[2017-10-15] MEDS: Furosemide 20 MG/2 ML VIAL SLOW IVP SCH ×2 (06:11→14:14)
[2017-10-15 06:14] LABS: #Lymphocytes 0.8 thou/uL (1.20-3.40); #Monocytes 0.4 thou/uL (0.11-0.59); #Neutrophils 7.9 thou/uL (1.40-6.50); %Basophils 0.2 % (0.0-1.0); %Eosinophils 0.2 % (0.0-10.0); %Lymphocytes 8.6 % (21.0-51.0); %Monocytes 4.7 % (0.0-10.0); %Neutrophils 86.2 % (42.0-75.0); Hemoglobin 7.4 g/dL (14.0-18.0); Mean Corpuscular HGB CONC 29.7 g/dL (32.0-36.0); Mean Corpuscular Hemoglobin 24.2 pg (27.0-31.0); Mean Corpuscular Volume 81.3 fl (80.0-94.0); Mean Platelet Volume 10.8 fL (7.4-10.4); Platelet Count 99 thou/uL (130-400); Red Blood Cell (RBC) Count 3.07 mill/uL (4.70-6.10); White Blood Cell (WBC) Count 9.2 thou/uL (4.8-10.8)
[2017-10-15 06:29] LABS: Anion Gap 10 mmol/L (10-20); BUN (Urea Nitrogen) 13 mg/dL (8.4-25.7); Calc. Creatinine Clearance 100 mL/min (70-130); Calcium 7.8 mg/dL (7.8-10.44); Carbon Dioxide 24 mmol/L (23-31); Chloride 107 mmol/L (98-107); Estimated GFR-MDRD Greater than 90; Glucose 140 mg/dL (80-115); Potassium 3.4 mmol/L (3.5-5.1); Sodium 138 mmol/L (136-145)
[2017-10-15 06:46] LABS: PLT Morphology Comment Appears Decreased
[2017-10-15 06:47] LABS: Anisocytosis SLIGHT = 6-15 cells (100X) (0-5/hpf); Hypochromia SLIGHT = 6-15 cells (100X) (0-5/hpf); Polychromasia SLIGHT = 2-3 cells (100X) (0-2/hpf)
[2017-10-15 07:40] LABS: Actual Bicarbonate (HCO3a) 24.8 mEq/L (22-26); Base Excess (BEa) -1.3 mEq/L (0 (+/-) 2.5); CO2 Tension 49.8 mmHg (35.0-45.0); Hemoglobin (Hb) 6.9 g/dL (14.0-18.0); pH, Arterial 7.32 (7.35-7.45)
[2017-10-15 07:41] LABS: Puncture Site LRA
[2017-10-15] MEDS ORDERED: Magnesium 2 GM/NS 0.9% 100 ML 2 GM in Premix Bag 1 BAG IVPB SCH (08:15)
[2017-10-15] MEDS: Pantoprazole 40 MG VIAL IVP SCH ×2 (08:31→20:05)
[2017-10-15] MEDS: Saccharomyces boulardii 250 MG CAP PO SCH (08:31)
[2017-10-15] MEDS: Folic Acid 1 MG TAB PO SCH (08:31)
[2017-10-15] MEDS: Spironolactone 25 MG TAB PER TUBE SCH ×2 (08:32→16:14)
[2017-10-15] MEDS: Cyanocobalamin (Vitamin B-12) 1,000 MCG TAB PO SCH (08:32)
[2017-10-15] MEDS: Multivit, Therapeutic 1 TAB PO SCH (08:32)
--- NOTE | 2017-10-15 08:33 | PRG ---
DATE OF SERVICE: 10/15/2017 This morning he is awake, alert on the vent. His tube was a little bit higher than it should be. X-ray still shows bilateral pulmonary infiltrates. PHYSICAL EXAMINATION: NEUROLOGIC: He is neurologically responsive. VITAL SIGNS: Pulse is 100, blood pressure 106/67, O2 sats 97%, respirations 17, I's and O's 1754 in, 1520 out. CHEST: His chest x-ray shows diffuse infiltrates. Chest has bilateral crackles. CARDIAC: Sinus tachycardia. ABDOMEN: Soft. LABORATORY DATA: White count 9, H&H is 7 and 24, platelet count 86. His BUN and creatinine are norm al. Potassium 3.4. Cultures so far negative. IMPRESSION: 1. Adult respiratory distress syndrome. 2. Gastrointestinal bleed. 3. Alcoholic liver disease. PLAN: We will start nutrition, PT, minimize sedation. I will follow. One-half hour critical care time.
--- NOTE | 2017-10-15 08:51 | RAD ---
AP CHEST: Indication: Intubation. Comparison: 10-14-17 FINDINGS: There is improvement in the diffuse parenchymal opacities involving the lungs. Patchy areas of airspa ce opacity remain predominately within the right perihilar region and left infrahilar region. Patient is no intubated with associated gastric catheter. There is a tiny left pleural effusion which is new . No pneumothorax is evident. IMPRESSION: 1. Improvement in diffuse parenchymal opacities. There are persistent patchy opacities remaining in t he right perihilar region and left infrahilar region. 2. Tiny left pleural effusion. 3. Interval intubation and gastric catheter placement. POS: [facility]
[2017-10-15] MEDS: Clindamycin/D5W 600 MG in Premix Bag 1 BAG IVPB SCH ×3 (09:38→23:24)
[2017-10-15] MEDS: fentaNYL Citrate/PF 2,000 MCG in Sodium Chloride 0.9% 60 ML IV PRN (10:06)
[2017-10-15] MEDS: Sodium Chloride 0.9% 1,000 ML IV SCH (12:22)
--- NOTE | 2017-10-15 22:14 | PDOC.PN ---
- Subjective Encounter Start Date: 10/15/17 Encounter Start Time: 14:00 Patient seen and examined. Intubated on Vent/Sedated. No overnight events - Objective Resuscitation Status: Resuscitation Status FULL:Full Resuscitation MAR Reviewed: Yes Vital Signs & Weight: Vital Signs (12 hours) Temp Pulse Resp BP Pulse Ox 10/15/17 20:00 98.6 F 105 H 16 96 10/15/17 19:00 98.6 F 10/15/17 18:36 117 H 10/15/17 18:35 118 H 28 H 97 10/15/17 18:00 28 H 10/15/17 17:00 98.9 F 10/15/17 16:00 25 H 10/15/17 14:59 99 93/51 L 10/15/17 14:58 99 21 H 92 L 10/15/17 14:00 27 H 10/15/17 13:00 98 F 10/15/17 12:00 18 10/15/17 10:34 86 99/54 L Weight Admit Weight 172 lb 8 oz Weight 165 lb 2.02 oz Most Recent Monitor Data Heart Rate from ECG 97 NIBP 89/46 NIBP BP-Mean 55 Respiration from ECG 14 SpO2 100 I&O: 10/14/17 10/15/17 10/16/17 06:59 06:59 06:59 Intake Total 1130 1754.5 1226.0 Output Total 1300 1520 871 Balance -170 234.5 355.0 Result Diagrams: 10/16/17 03:41 10/16/17 03:41 Phys Exam - Physical Examination Constitutional: NAD Respiratory: no wheezing Bibasilar rales/rhonchi Cardiovascular: RRR, no rub Gastrointestinal: soft, positive bowel sounds Musculoskeletal: edema present Neurological: moves all 4 limbs Psychiatric: A&O x 3 (following command on Vent) Dx/Plan - Plan DVT proph w/SCDs IMPRESSION: 1. Symptomatic anemia/Acute on chronic gastrointestinal bleeding s/p EGD/4 units PRBC 2. Acute hypoxic resp failure/Sepsis due to multifocal pneumonia ?Aspiration with Pleural effusions/ARDS 3. Anemia due to GI blood loss. 4. Ascites/Coagulopathy/Splenomegaly secondary to alcoholic cirrhosis. 5. Abnormal EKG with elevated troponin secondary to severe anemia. Echo done 6. Hypokalemia/Hypomagnesemia/Cholelithiasis./Ongoing tobacco abuse. Counselled./Hyponatremia./ Metabolic acidosis secondary to elevated lactate./ Iron deficiency anemia./ Hypomagnessemia/Lactic acidosis, probably secondary to severe anemia. resolved PLAN: * Cont IV Lasix with Spironolactone * Replace Potassium/Mg * AM labs * Critical care following * Cont current meds as below * Monitor for alcohol withdrawal * Transfuse PRN if HH <7 * Cont Zosyn with Clindamycin Review of Systems - Medications/Allergies Allergies/Adverse Reactions: Allergies Allergy/AdvReac Type Severity Reaction Status Date / Time No Known Allergies Allergy Verified 10/12/17 22:05 Medications: Current Medications Acetaminophen (Tylenol) 325 mg PO Q6H PRN PRN Reason: Headache/Fever or Pain Last Admin: 10/13/17 23:15 Dose: 325 mg Al Hydroxide/Mg Hydroxide (Maalox) 30 ml PO Q6H PRN PRN Reason: Heartburn or Indigestion Albuterol/Ipratropium (Duoneb) 3 ml NEB [id number] [facility] Last Admin: 10/15/17 18:35 Dose: 3 ml Albuterol/Ipratropium (Duoneb) 3 ml NEB Q4H PRN PRN Reason: SOB &/or Wheezing Calcium Carbonate (Tums) 1,000 mg PO Q4H PRN PRN Reason: Heartburn or Indigestion Cyanocobalamin (Vitamin B-12) 1,000 mcg PO DAILY [facility] Last Admin: 10/15/17 08:32 Dose: 1,000 mcg Folic Acid (Folvite) 1 mg PO 0900 [facility] Last Admin: 10/15/17 08:31 Dose: 1 mg Furosemide (Lasix) 20 mg SLOW IVP Q8HR PRN PRN Reason: Resp distress Last Admin: 10/14/17 08:36 Dose: 20 mg Furosemide (Lasix) 20 mg SLOW IVP 0600,1400 [facility] Last Admin: 10/15/17 14:14 Dose: 20 mg Clindamycin Phosphate/Dextrose (600 mg/ Device) 50 mls @ 100 mls/hr IVPB 0800, 1600,2359 [facility] Last Admin: 10/15/17 17:04 Dose: 50 mls Piperacillin Sod/Tazobactam (Sod 3.375 gm/ Sodium Chloride) 100 mls @ 200 mls/ hr IVPB 0400,1000,1600,2200 [facility] Last Admin: 10/15/17 21:40 Dose: 100 mls Potassium Chloride 40 meq/ (Sodium Chloride) 270 mls @ 135 mls/hr IVPB ASDIR PRN PRN Reason: FOR SERUM K+ 2.5 - 3.5 Last Admin: 10/15/17 08:31 Dose: 270 mls Potassium Chloride 40 meq/ (Device) 100 mls @ 50 mls/hr IVPB ASDIR PRN PRN Reason: FOR SERUM K+ 2.5 - 3.5 Magnesium Sulfate 1 gm/ Sodium (Chloride) 102 mls @ 102 mls/hr IV PRN PRN PRN Reason: MAG LEVEL 1.4 - 2.0 Magnesium Sulfate 2 gm/ Device 100 mls @ 100 mls/hr IVPB ASDIR PRN PRN Reason: MAGNESIUM < 1.4 Potassium Phosphate 9 mmol/ (Sodium Chloride) 103 mls @ 25.75 mls/hr IVPB ASDIR PRN PRN Reason: Phosphate 1.0-1.8 Potassium Phosphate 12 mmol/ (Sodium Chloride) 254 mls @ 63.5 mls/hr IV ASDIR PRN PRN Reason: Serum phosphate 0.5-0.9 Potassium Phosphate 15 mmol/ (Sodium Chloride) 255 mls @ 63.75 mls/hr IV ASDIR PRN PRN Reason: Serum Phos < 0.5 Fentanyl Citrate (Fentanyl Bolus) 250 mls @ 0 mls/hr IVPB PRN PRN; As Directed PRN Reason: Breakthrough pain Stop: 11/13/17 09:51 Fentanyl Citrate 2,000 mcg/ (Sodium Chloride) 100 mls @ 0 mls/hr IV INF PRN; As Directed PRN Reason: Pain Last Admin: 10/15/17 10:06 Dose: 100 mls Sodium Chloride (Normal Saline 0.9%) 1,000 mls @ 50 mls/hr IV .Q20H [facility] Last Admin: 10/15/17 12:22 Dose: 1,000 mls Loratadine (Claritin) 10 mg PO DAILYPRN PRN PRN Reason: Sinus Symptoms Lorazepam (Ativan) 2 mg SLOW IVP Q2H PRN PRN Reason: Anxiety to achieve [place] 2-3 Stop: 11/13/17 09:51 Last Admin: 10/15/17 20:05 Dose: 2 mg Magnesium Oxide (Magnesium Oxide) 400 mg PO BIDPRN PRN PRN Reason: FOR SERUM MAG 1.4 - 2.0 Last Admin: 10/15/17 08:31 Dose: 400 mg Magnesium Oxide (Magnesium Oxide) 800 mg PO PRN PRN PRN Reason: FOR SERUM MAG < 1.4 Methylprednisolone Sodium Succinate (Solu-Medrol) 40 mg IVP Q6HR [facility] Last Admin: 10/15/17 17:07 Dose: 40 mg Mineral Oil/White Petrolatum (Eucerin Cream) 0 gm TOP BIDPRN PRN PRN Reason: Dry Skin Mineral Oil/White Petrolatum (Lacri-Lube Ointment) 0 gm EA EYE PRN PRN PRN Reason: Dry Eyes Miscellaneous Medication (Phos-Nak) 1 pkt PO TIDPRN PRN PRN Reason: FOR PHOS LEVEL 1.0 - 1.8 Miscellaneous Medication (Phos-Nak) 2 pkt PO TIDPRN PRN PRN Reason: FOR PHOS LEVEL 0.5 - 1.0 Morphine Sulfate (Morphine) 2 mg SLOW IVP Q2H PRN PRN Reason: Breakthrough pain Stop: 11/13/17 09:51 Multivitamins (Theragran) 1 tab PO DAILY [facility] Last Admin: 10/15/17 08:32 Dose: 1 tab Nitroglycerin (Nitrostat) 0.4 mg PO Q5MIN PRN PRN Reason: Chest Pain Ondansetron HCl (Zofran Odt) 4 mg PO Q6H PRN PRN Reason: Nausea/Vomiting Ondansetron HCl (Zofran) 4 mg IVP Q6H PRN PRN Reason: Nausea/Vomiting Pantoprazole Sodium (Protonix) 40 mg IVP Q12HR [facility] Last Admin: 10/15/17 20:05 Dose: 40 mg Polyethylene Glycol (Miralax) 17 gm PO DAILY PRN PRN Reason: Constipation Potassium Chloride (K-Dur) 40 meq PO ASDIR PRN PRN Reason: FOR SERUM K+ 2.5 - 3.5 Potassium Chloride (Klor-Con) 40 meq PER TUBE ASDIR PRN PRN Reason: FOR SERUM K+ 2.5-3.5 Propofol (Diprivan) 1,000 mg IV INF PRN; Protocol PRN Reason: TO ACHIEVE [place] SCORE 2-3 Stop: 11/13/17 09:51 Last Admin: 10/15/17 15:45 Dose: 1,000 mg Saccharomyces Boulardii (Florastor) 250 mg PO DAILY [facility] Last Admin: 10/15/17 08:31 Dose: 250 mg Simethicone (Mylicon Chewable) 80 mg PO PCHS PRN PRN Reason: Gas Pain Sodium Chloride (Flush - Normal Saline) 10 ml IVF Q12HR [facility] Last Admin: 10/15/17 20:05 Dose: 10 ml Sodium Chloride (Flush - Normal Saline) 10 ml IVF PRN PRN PRN Reason: Saline Flush Spironolactone (Aldactone) 25 mg [facility] Last Admin: 10/15/17 16:14 Dose: Not Given Thiamine HCl (Thiamine) 100 mg PO DAILY [facility] Last Admin: 10/15/17 08:32 Dose: 100 mg Tramadol HCl (Ultram) 50 mg PO Q8H PRN PRN Reason: Moderate Pain (4-6) Vecuronium [place] (Norcuron) 10 mg IV Q1H PRN PRN Reason: . Last Admin: 10/15/17 16:37 Dose: 10 mg
[2017-10-16] MEDS: Piperacillin/Tazobactam 3.375 GM in Sodium Chloride 0.9% 100 ML IVPB SCH ×4 (03:33→22:24)
[2017-10-16 04:23] LABS: Anion Gap 13 mmol/L (10-20); BUN (Urea Nitrogen) 19 mg/dL (8.4-25.7); Calc. Creatinine Clearance 88 mL/min (70-130); Calcium 8.6 mg/dL (7.8-10.44); Carbon Dioxide 22 mmol/L (23-31); Chloride 109 mmol/L (98-107); Estimated GFR-MDRD 83; Glucose 141 mg/dL (80-115); Potassium 3.7 mmol/L (3.5-5.1); Sodium 140 mmol/L (136-145)
[2017-10-16 04:55] LABS: #Lymphocytes 0.7 thou/uL (1.20-3.40); #Monocytes 0.7 thou/uL (0.11-0.59); #Neutrophils 7.5 thou/uL (1.40-6.50); %Eosinophils 0.2 % (0.0-10.0); %Lymphocytes 8.1 % (21.0-51.0); %Neutrophils 83.7 % (42.0-75.0); Anisocytosis SLIGHT = 6-15 cells (100X) (0-5/hpf); Hemoglobin 7.9 g/dL (14.0-18.0); MDiff Complete? YES; Mean Corpuscular HGB CONC 29.7 g/dL (32.0-36.0); Mean Corpuscular Hemoglobin 24.2 pg (27.0-31.0); Mean Corpuscular Volume 81.4 fl (80.0-94.0); Mean Platelet Volume 11.1 fL (7.4-10.4); Ovalocytes SLIGHT = 2-5 cells (100X) (0-1/hpf); PLT Morphology Comment Appears Decreased; Platelet Count 111 thou/uL (130-400); Polychromasia SLIGHT = 2-3 cells (100X) (0-2/hpf); RBC Distribution Width 21.6 % (11.5-14.5); Red Blood Cell (RBC) Count 3.25 mill/uL (4.70-6.10)
[2017-10-16] MEDS: Furosemide 20 MG/2 ML VIAL SLOW IVP SCH ×2 (05:05→14:04)
[2017-10-16 07:28] LABS: Actual Bicarbonate (HCO3a) 27.1 mEq/L (22-26); Base Excess (BEa) 1.8 mEq/L (0 (+/-) 2.5); CO2 Tension 47.2 mmHg (35.0-45.0); O2 Tension (PaO2) 77.9 mmHg (80.0-100.0); pH, Arterial 7.38 (7.35-7.45)
[2017-10-16 07:29] LABS: Calcium, Ionized 1.2 mmol/L (1.12-1.30); Hematocrit-ABG 23.3 % (42.0-52.0); Hemoglobin (Hb) 4.8 g/dL (14.0-18.0)
[2017-10-16 07:30] LABS: Analyzer IN Cardio ER; Puncture Site L.R.
[2017-10-16] MEDS: Clindamycin/D5W 600 MG in Premix Bag 1 BAG IVPB SCH ×2 (07:53→16:16)
[2017-10-16] MEDS: Spironolactone 25 MG TAB PER TUBE SCH ×2 (07:54→16:17)
[2017-10-16] MEDS: Multivit, Therapeutic 1 TAB PO SCH (08:00)
[2017-10-16] MEDS: Sodium Chloride 0.9% 1,000 ML IV SCH ×2 (08:00→10:41)
[2017-10-16] MEDS: Saccharomyces boulardii 250 MG CAP PO SCH (08:01)
[2017-10-16] MEDS: Folic Acid 1 MG TAB PO SCH (08:01)
[2017-10-16] MEDS: Pantoprazole 40 MG VIAL IVP SCH ×2 (08:04→20:54)
[2017-10-16] MEDS: Cyanocobalamin (Vitamin B-12) 1,000 MCG TAB PO SCH (08:05)
--- NOTE | 2017-10-16 08:28 | RAD ---
AP VIEW OF THE CHEST: INDICATION: History of intubation. COMPARISON: Prior exam dated 10/15/17. FINDINGS: ET tube and gastric catheter are unchanged. There are worsening perihilar opacities suspicious for o ther worsening edema or pneumonia. There are worsening small bilateral pleural effusions. No pneumo thorax is evident. The cardiac silhouette is largely obscured by the perihilar opacities. No acute osseous abnormality is evident. IMPRESSION: 1. Worsening perihilar airspace opacities may reflect edema, hemorrhage, or pneumonia. Radiographic followup is recommended. 2. Slightly increased in size of small bilateral pleural effusions. 3. Tubes and lines are stable. 4. No pneumothorax demonstrated. POS: [facility]
[2017-10-16] MEDS ORDERED: Furosemide 40 MG/4 ML VIAL SLOW IVP SCH (08:45)
--- NOTE | 2017-10-16 12:01 | PRG ---
DATE OF SERVICE: 10/16/2017 SUBJECTIVE: Sanford Sim, this morning is intubated on the vent. PHYSICAL EXAMINATION: GENERAL: Awake, responsive. VITAL SIGNS: Blood pressure is 186/47, pulse 92, sats 100%, and respiratory rate 18. CHEST: Extensive rhonchi and crackles. CARDIAC: Normal S1, S2. No gallops. ABDOMEN: Soft. No masses. LABORATORY DATA AND IMAGING DATA: White count 9,000, hemoglobin and hematocrit 7 and 26, platelet co unt is low at 111, pO2 77, pCO2 47, pH 7.38, potassium 3.1, electrolytes are normal. X-ray shows ADRY S findings. IMPRESSION: 1. Respiratory failure, probably aspiration and normal ejection fraction. 2. Alcohol liver disease. PLAN: Steroids, broad-spectrum antibiotics, neb treatments, thiamine, nutrition, PT. He is on . X-ray still shows very impressive diffuse infiltrates. We will follow. One-half hour critical care time.
[2017-10-16] MEDS: fentaNYL Citrate/PF 2,000 MCG in Sodium Chloride 0.9% 60 ML IV PRN (13:58)
--- NOTE | 2017-10-16 21:55 | PDOC.PN ---
- Subjective Encounter Start Date: 10/16/17 Encounter Start Time: 16:30 Patient seen and examined. On [facility] Vent. No overnight events - Objective Resuscitation Status: Resuscitation Status FULL:Full Resuscitation MAR Reviewed: Yes Vital Signs & Weight: Vital Signs (12 hours) Temp Pulse Pulse Pulse Resp BP BP 10/16/17 18:31 10/16/17 18:25 10/16/17 17:00 97.9 F 10/16/17 16:00 20 10/16/17 15:42 89 105/56 L 10/16/17 14:00 24 H 10/16/17 13:24 86 104/59 L 10/16/17 12:00 98.4 F 32 H 10/16/17 11:20 87 92 96/54 L 10/16/17 11:10 87 98/52 L 10/16/17 10:00 22 H BP Pulse Ox Pulse Ox Pulse Ox 10/16/17 18:31 98 10/16/17 18:25 98 10/16/17 17:00 10/16/17 16:00 10/16/17 15:42 10/16/17 14:00 10/16/17 13:24 10/16/17 12:00 10/16/17 11:20 97/61 100 95 10/16/17 11:10 10/16/17 10:00 Weight Admit Weight 172 lb 8 oz Weight 169 lb 8.568 oz Most Recent Monitor Data Heart Rate from ECG 90 NIBP 107/56 NIBP BP-Mean 71 Respiration from ECG 10 SpO2 100 I&O: 10/15/17 10/16/17 10/17/17 06:59 06:59 06:59 Intake Total 1754.5 2228.0 1011.5 Output Total 1520 1383 3475 Balance 234.5 845.0 -2463.5 Result Diagrams: 10/17/17 03:50 10/17/17 03:50 Radiology Reviewed by me: Yes (CXR - worsening airspace opacities) EKG Reviewed by me: Yes (Tele SR) Phys Exam - Physical Examination Constitutional: NAD Respiratory: no wheezing Coarse BS B/L with scat rales at bases Cardiovascular: RRR, no rub Gastrointestinal: soft, positive bowel sounds Musculoskeletal: edema present Neuro/Psych - Cannot assess due to sedation Dx/Plan - Plan DVT proph w/SCDs IMPRESSION: 1. Symptomatic anemia/Acute on chronic gastrointestinal bleeding s/p EGD/4 units PRBC 2. Acute hypoxic resp failure/Sepsis due to multifocal pneumonia ?Aspiration with Pleural effusions/ARDS 3. Anemia due to GI blood loss. 4. Ascites/Coagulopathy/Splenomegaly secondary to alcoholic cirrhosis. 5. Abnormal EKG with elevated troponin secondary to severe anemia. Echo done 6. Hypokalemia/Hypomagnesemia/Cholelithiasis./Ongoing tobacco abuse. Counselled./Hyponatremia./ Metabolic acidosis secondary to elevated lactate./ Iron deficiency anemia./ Hypomagnessemia/Lactic acidosis, probably secondary to severe anemia. resolved PLAN: * Con Zosyn with Clindamycin * Replace electrolytes * Cont IV Lasix with Spironolactone - received one extra dose today * Extubation per Critical care * AM labs * Cont current meds as below * Monitor for alcohol withdrawal * Transfuse PRN if HH <7 Review of Systems - Review of Systems Other: Cannot obtain due to sedation - Medications/Allergies Allergies/Adverse Reactions: Allergies Allergy/AdvReac Type Severity Reaction Status Date / Time No Known Allergies Allergy Verified 10/12/17 22:05 Medications: Current Medications Acetaminophen (Tylenol) 325 mg PO Q6H PRN PRN Reason: Headache/Fever or Pain Last Admin: 10/13/17 23:15 Dose: 325 mg Al Hydroxide/Mg Hydroxide (Maalox) 30 ml PO Q6H PRN PRN Reason: Heartburn or Indigestion Albuterol/Ipratropium (Duoneb) 3 ml NEB [id number] [facility] Last Admin: 10/16/17 18:25 Dose: 3 ml Albuterol/Ipratropium (Duoneb) 3 ml NEB Q4H PRN PRN Reason: SOB &/or Wheezing Calcium Carbonate (Tums) 1,000 mg PO Q4H PRN PRN Reason: Heartburn or Indigestion Cyanocobalamin (Vitamin B-12) 1,000 mcg PO DAILY [facility] Last Admin: 10/16/17 08:05 Dose: 1,000 mcg Folic Acid (Folvite) 1 mg PO 0900 [facility] Last Admin: 10/16/17 08:01 Dose: 1 mg Furosemide (Lasix) 20 mg SLOW IVP Q8HR PRN PRN Reason: Resp distress Last Admin: 10/14/17 08:36 Dose: 20 mg Furosemide (Lasix) 20 mg SLOW IVP 0600,1400 [facility] Last Admin: 10/16/17 14:04 Dose: 20 mg Clindamycin Phosphate/Dextrose (600 mg/ Device) 50 mls @ 100 mls/hr IVPB 0800, 1600,2359 [facility] Last Admin: 10/16/17 16:16 Dose: 50 mls Piperacillin Sod/Tazobactam (Sod 3.375 gm/ Sodium Chloride) 100 mls @ 200 mls/ hr IVPB 0400,1000,1600,2200 [facility] Last Admin: 10/16/17 16:17 Dose: 100 mls Potassium Chloride 40 meq/ (Sodium Chloride) 270 mls @ 135 mls/hr IVPB ASDIR PRN PRN Reason: FOR SERUM K+ 2.5 - 3.5 Last Admin: 10/15/17 08:31 Dose: 270 mls Potassium Chloride 40 meq/ (Device) 100 mls @ 50 mls/hr IVPB ASDIR PRN PRN Reason: FOR SERUM K+ 2.5 - 3.5 Magnesium Sulfate 1 gm/ Sodium (Chloride) 102 mls @ 102 mls/hr IV PRN PRN PRN Reason: MAG LEVEL 1.4 - 2.0 Magnesium Sulfate 2 gm/ Device 100 mls @ 100 mls/hr IVPB ASDIR PRN PRN Reason: MAGNESIUM < 1.4 Potassium Phosphate 9 mmol/ (Sodium Chloride) 103 mls @ 25.75 mls/hr IVPB ASDIR PRN PRN Reason: Phosphate 1.0-1.8 Potassium Phosphate 12 mmol/ (Sodium Chloride) 254 mls @ 63.5 mls/hr IV ASDIR PRN PRN Reason: Serum phosphate 0.5-0.9 Potassium Phosphate 15 mmol/ (Sodium Chloride) 255 mls @ 63.75 mls/hr IV ASDIR PRN PRN Reason: Serum Phos < 0.5 Fentanyl Citrate (Fentanyl Bolus) 250 mls @ 0 mls/hr IVPB PRN PRN; As Directed PRN Reason: Breakthrough pain Stop: 11/13/17 09:51 Fentanyl Citrate 2,000 mcg/ (Sodium Chloride) 100 mls @ 0 mls/hr IV INF PRN; As Directed PRN Reason: Pain Last Admin: 10/16/17 13:58 Dose: 100 mls Sodium Chloride (Normal Saline 0.9%) 1,000 mls @ 30 mls/hr IV .Q24H [facility] Last Admin: 10/16/17 10:41 Dose: Not Given Dexmedetomidine HCl 200 mcg/ (Sodium Chloride) 50 mls @ 0 mls/hr IVPB INF PRN; As Directed PRN Reason: AGITATION POST EXTUBATION Loratadine (Claritin) 10 mg PO DAILYPRN PRN PRN Reason: Sinus Symptoms Lorazepam (Ativan) 2 mg SLOW IVP Q2H PRN PRN Reason: Anxiety to achieve [place] 2-3 Stop: 11/13/17 09:51 Last Admin: 10/15/17 20:05 Dose: 2 mg Magnesium Oxide (Magnesium Oxide) 400 mg PO BIDPRN PRN PRN Reason: FOR SERUM MAG 1.4 - 2.0 Last Admin: 10/15/17 08:31 Dose: 400 mg Magnesium Oxide (Magnesium Oxide) 800 mg PO PRN PRN PRN Reason: FOR SERUM MAG < 1.4 Methylprednisolone Sodium Succinate (Solu-Medrol) 40 mg IVP Q6HR [facility] Last Admin: 10/16/17 12:44 Dose: 40 mg Mineral Oil/White Petrolatum (Eucerin Cream) 0 gm TOP BIDPRN PRN PRN Reason: Dry Skin Mineral Oil/White Petrolatum (Lacri-Lube Ointment) 0 gm EA EYE PRN PRN PRN Reason: Dry Eyes Miscellaneous Medication (Phos-Nak) 1 pkt PO TIDPRN PRN PRN Reason: FOR PHOS LEVEL 1.0 - 1.8 Miscellaneous Medication (Phos-Nak) 2 pkt PO TIDPRN PRN PRN Reason: FOR PHOS LEVEL 0.5 - 1.0 Morphine Sulfate (Morphine) 2 mg SLOW IVP Q2H PRN PRN Reason: Breakthrough pain Stop: 11/13/17 09:51 Multivitamins (Theragran) 1 tab PO DAILY [facility] Last Admin: 10/16/17 08:00 Dose: 1 tab Nitroglycerin (Nitrostat) 0.4 mg PO Q5MIN PRN PRN Reason: Chest Pain Ondansetron HCl (Zofran Odt) 4 mg PO Q6H PRN PRN Reason: Nausea/Vomiting Ondansetron HCl (Zofran) 4 mg IVP Q6H PRN PRN Reason: Nausea/Vomiting Pantoprazole Sodium (Protonix) 40 mg IVP Q12HR [facility] Last Admin: 10/16/17 20:54 Dose: 40 mg Polyethylene Glycol (Miralax) 17 gm PO DAILY PRN PRN Reason: Constipation Potassium Chloride (K-Dur) 40 meq PO ASDIR PRN PRN Reason: FOR SERUM K+ 2.5 - 3.5 Potassium Chloride (Klor-Con) 40 meq PER TUBE ASDIR PRN PRN Reason: FOR SERUM K+ 2.5-3.5 Propofol (Diprivan) 1,000 mg IV INF PRN; Protocol PRN Reason: TO ACHIEVE [place] SCORE 2-3 Stop: 11/13/17 09:51 Last Admin: 10/15/17 15:45 Dose: 1,000 mg Saccharomyces Boulardii (Florastor) 250 mg PO DAILY [facility] Last Admin: 10/16/17 08:01 Dose: 250 mg Simethicone (Mylicon Chewable) 80 mg PO PCHS PRN PRN Reason: Gas Pain Sodium Chloride (Flush - Normal Saline) 10 ml IVF Q12HR [facility] Last Admin: 10/16/17 20:54 Dose: 10 ml Sodium Chloride (Flush - Normal Saline) 10 ml IVF PRN PRN PRN Reason: Saline Flush Spironolactone (Aldactone) 25 mg PER TUBE BID-WM [facility] Last Admin: 10/16/17 16:17 Dose: 25 mg Thiamine HCl (Thiamine) 100 mg PO DAILY [facility] Last Admin: 10/16/17 08:00 Dose: 100 mg Tramadol HCl (Ultram) 50 mg PO Q8H PRN PRN Reason: Moderate Pain (4-6)
[2017-10-17] MEDS: Piperacillin/Tazobactam 3.375 GM in Sodium Chloride 0.9% 100 ML IVPB SCH ×4 (04:00→21:57)
[2017-10-17 04:47] LABS: Anion Gap 13 mmol/L (10-20); BUN (Urea Nitrogen) 20 mg/dL (8.4-25.7); Calc. Creatinine Clearance 107 mL/min (70-130); Calcium 8.7 mg/dL (7.8-10.44); Carbon Dioxide 31 mmol/L (23-31); Chloride 105 mmol/L (98-107); Estimated GFR-MDRD Greater than 90; Glucose 131 mg/dL (80-115); Magnesium 1.8 mg/dL (1.6-2.6); Sodium 146 mmol/L (136-145)
[2017-10-17 04:51] LABS: Potassium 2.9 mmol/L (3.5-5.1)
[2017-10-17 05:05] LABS: Hemoglobin 7.9 g/dL (14.0-18.0); Mean Corpuscular HGB CONC 31.6 g/dL (32.0-36.0); Mean Corpuscular Hemoglobin 25.2 pg (27.0-31.0); Mean Corpuscular Volume 79.8 fl (80.0-94.0); Mean Platelet Volume 5.7 fL (7.4-10.4); Platelet Count 94 thou/uL (130-400); RBC Distribution Width 21.9 % (11.5-14.5); Red Blood Cell (RBC) Count 3.15 mill/uL (4.70-6.10); White Blood Cell (WBC) Count 6.6 thou/uL (4.8-10.8)
[2017-10-17 05:06] LABS: Anisocytosis SLIGHT = 6-15 cells (100X) (0-5/hpf); Band 2 % (5-11); Hypochromia SLIGHT = 6-15 cells (100X) (0-5/hpf); Lymphocytes 7 % (21-51); MDiff Complete? YES; Monocytes 5 % (0-10); Myelocyte 2 % (0-0); Neutrophil 84 % (42-75); Nucleated RBC 1 % (0); PLT Morphology Comment Appears Decreased; Polychromasia SLIGHT = 2-3 cells (100X) (0-2/hpf)
[2017-10-17] MEDS: Furosemide 20 MG/2 ML VIAL SLOW IVP SCH ×2 (05:21→14:32)
[2017-10-17] MEDS: Spironolactone 25 MG TAB PER TUBE SCH ×2 (08:42→17:13)
[2017-10-17] MEDS: Folic Acid 1 MG TAB PO SCH (08:42)
[2017-10-17] MEDS: Saccharomyces boulardii 250 MG CAP PO SCH (08:42)
[2017-10-17] MEDS: Cyanocobalamin (Vitamin B-12) 1,000 MCG TAB PO SCH (08:42)
[2017-10-17] MEDS: Multivit, Therapeutic 1 TAB PO SCH (08:43)
[2017-10-17] MEDS: Clindamycin/D5W 600 MG in Premix Bag 1 BAG IVPB SCH ×3 (08:43→19:02)
[2017-10-17] MEDS: Pantoprazole 40 MG VIAL IVP SCH ×2 (08:44→21:57)
--- NOTE | 2017-10-17 09:30 | RAD ---
UPRIGHT PORTABLE CHEST 1 VIEW: HISTORY: A 61-year-old male with respiratory insufficiency. COMPARISON: 10/16/17. FINDINGS: The NG tube and endotracheal tube have been removed. There are fairly extensive bilateral alveolar a nd interstitial opacity changes throughout both lungs and bilateral pleural effusions with slight imp rovement from prior studies. No new confluent process. IMPRESSION: Persistent bilateral interstitial and alveolar opacities and pleural effusions and cardiomegaly. Rem oval of the nasogastric tube and endotracheal tube. Continue short-term followup. POS: AMPARO
[2017-10-17] MEDS: Sodium Chloride 0.9% 1,000 ML IV SCH (10:33)
--- NOTE | 2017-10-17 12:23 | EKG ---
Test Reason : Blood Pressure : / mmHG Vent. Rate : 131 BPM Atrial Rate : 131 BPM P-R Int : 130 ms QRS Dur : 076 ms QT Int : 332 ms P-R-T Axes : 061 042 045 degrees QTc Int : 490 ms Sinus tachycardia Nonspecific ST and T wave abnormality Abnormal ECG Confirmed by SHARRI LARSON M.D. ([id number]), avid editor RAF MCMAHON ([id number]) on 10/17/2017 12:22:56 PM Referred By: Confirmed By:SHARRI LARSON M.D.
--- NOTE | 2017-10-17 12:40 | PRG ---
DATE OF SERVICE: 10/17/2017 SERVICE: Pulmonary Medicine. INTERVAL HISTORY: The patient is doing really well from a respiratory standpoint. He is breathing c omfortably. No abdominal discomfort. He is tolerating some small p.o. He ultimately self extubated overnight. That being said, he was on 2 liters nasal cannula. He got a little bit of agitation ass ociated with alcohol withdrawals. He has put on some dexmedetomidine transiently, but this has subse quently been weaned off. He denies any fevers, chills, nausea, vomiting or overnight events otherwis e. PHYSICAL EXAMINATION: VITAL SIGNS: Afebrile, pulse 74, blood pressure 102/53, respirations 19, saturation 94% on room air. GENERAL: The patient is awake and alert, in no apparent distress. LUNGS: Decent air entry. No prolonged expiratory phase or wheezing is appreciated. HEART: Normal rate, regular. ABDOMEN: Soft, nontender, and nondistended. Bowel sounds are positive. MUSCULOSKELETAL: No cyanosis or clubbing. No significant edema is present. GENITOURINARY: No Ybarra. NEUROLOGIC: Grossly nonfocal. LABORATORY DATA: Hemoglobin 7.9. WBC 6.6, platelets 94,000. INR 1.6. Potassium 2.9. Basic metabo lic profile is otherwise unremarkable. Magnesium falls within the normal limits. Respiratory cultur e is negative to date. Blood culture x2 and urine culture is negative. IMAGING: Chest x-ray demonstrates interval extubation. Patchy interstitial infiltrates are present in the right hilar region. They are also present in the left lower lobe. ASSESSMENT: 1. Acute blood loss anemia. 2. Peptic ulcer disease. 3. Acute hypoxic respiratory failure, resolved. 4. Community-acquired pneumonia secondary to gross aspiration. 5. Chronic liver disease secondary to alcohol abuse. PLAN: We will continue our supportive care. Hemoglobin will be repeated tomorrow morning. If GI is okay with it, the patient can be transitioned to the medical unit. We will continue to watch his E scores to make certain he does not develop any significant withdraw features. Critical Care will c ontinue to follow for 1 additional day.
[2017-10-17] MEDS ORDERED: Lorazepam 1 MG TAB PO PRN (22:17)
--- NOTE | 2017-10-17 22:25 | PDOC.PN ---
- Subjective Encounter Start Date: 10/17/17 Encounter Start Time: 18:00 Patient seen and examined. No new complaints. No overnight events. Extubated - Objective Resuscitation Status: Resuscitation Status FULL:Full Resuscitation MAR Reviewed: Yes Vital Signs & Weight: Vital Signs (12 hours) Temp Pulse Resp Pulse Ox 10/17/17 18:47 100 10/17/17 16:00 97.9 F 10/17/17 14:41 77 18 94 L 10/17/17 12:00 97.6 F Weight Admit Weight 172 lb 8 oz Weight 160 lb 14.999 oz Most Recent Monitor Data Heart Rate from ECG 74 NIBP 121/65 NIBP BP-Mean 76 Respiration from ECG 14 SpO2 100 I&O: 10/16/17 10/17/17 10/18/17 06:59 06:59 06:59 Intake Total 2228.0 1011.5 1464 Output Total 1383 5015 1365 Balance 845.0 -4003.5 99 Result Diagrams: 10/17/17 03:50 10/17/17 09:11 Additional Labs: Accuchecks 10/17/17 10/17/17 10/16/17 17:13 09:16 22:35 POC Glucose 175 H 144 H 129 H 10/16/17 10/16/17 10/16/17 16:33 10:40 04:36 POC Glucose 145 H 153 H 131 H 10/15/17 10/15/17 10/15/17 21:31 17:19 10:54 POC Glucose 148 H 141 H 152 H 10/15/17 10/14/17 10/14/17 04:11 21:15 16:29 POC Glucose 170 H 182 H 152 H EKG Reviewed by me: Yes (Tele SR) Phys Exam - Physical Examination Constitutional: NAD Respiratory: no wheezing Scat rales/rhonchi at bases Cardiovascular: RRR, no rub Gastrointestinal: soft, non-tender, positive bowel sounds Neurological: moves all 4 limbs Psychiatric: A&O x 3 Dx/Plan - Plan DVT proph w/SCDs IMPRESSION: 1. Symptomatic anemia/Acute on chronic gastrointestinal bleeding s/p EGD/4 units PRBC 2. Acute hypoxic resp failure/Sepsis due to multifocal pneumonia ?Aspiration with Pleural effusions/ARDS 3. Anemia due to GI blood loss. 4. Ascites/Coagulopathy/Splenomegaly secondary to alcoholic cirrhosis. 5. Abnormal EKG with elevated troponin secondary to severe anemia. Echo done 6. Hypokalemia/Hypomagnesemia/Cholelithiasis./Ongoing tobacco abuse. Counselled./Hyponatremia./ Metabolic acidosis secondary to elevated lactate./ Iron deficiency anemia./ Hypomagnessemia/Lactic acidosis, probably secondary to severe anemia. resolved PLAN: * Transfuse PRN if HH <7 * Con Clindamycin * DC Zosyn * Replace Potassium * Cont IV Lasix with Spironolactone * AM labs * Cont current meds as below * Monitor for alcohol withdrawal - Add Ativan PRN for ASE >=9 Review of Systems - Review of Systems Respiratory: negative: Cough, Dry, Shortness of Breath, Hemoptysis, SOB with Excertion, Pleuritic Pain, Sputum, Wheezing Cardiovascular: negative: chest pain, palpitations, orthopnea, paroxysmal nocturnal dyspnea, edema, light headedness - Medications/Allergies Allergies/Adverse Reactions: Allergies Allergy/AdvReac Type Severity Reaction Status Date / Time No Known Allergies Allergy Verified 10/12/17 22:05 Medications: Current Medications Acetaminophen (Tylenol) 325 mg PO Q6H PRN PRN Reason: Headache/Fever or Pain Last Admin: 10/13/17 23:15 Dose: 325 mg Al Hydroxide/Mg Hydroxide (Maalox) 30 ml PO Q6H PRN PRN Reason: Heartburn or Indigestion Albuterol/Ipratropium (Duoneb) 3 ml NEB Q4H PRN PRN Reason: SOB &/or Wheezing Last Admin: 10/17/17 14:41 Dose: 3 ml Calcium Carbonate (Tums) 1,000 mg PO Q4H PRN PRN Reason: Heartburn or Indigestion Cyanocobalamin (Vitamin B-12) 1,000 mcg PO DAILY [facility] Last Admin: 10/17/17 08:42 Dose: 1,000 mcg Folic Acid (Folvite) 1 mg PO 0900 [facility] Last Admin: 10/17/17 08:42 Dose: 1 mg Furosemide (Lasix) 20 mg SLOW IVP 0600,1400 [facility] Last Admin: 10/17/17 14:32 Dose: 20 mg Clindamycin Phosphate/Dextrose (600 mg/ Device) 50 mls @ 100 mls/hr IVPB 0800, 1600,2359 [facility] Last Admin: 10/17/17 19:02 Dose: 50 mls Potassium Chloride 40 meq/ (Sodium Chloride) 270 mls @ 135 mls/hr IVPB ASDIR PRN PRN Reason: FOR SERUM K+ 2.5 - 3.5 Last Admin: 10/15/17 08:31 Dose: 270 mls Potassium Chloride 40 meq/ (Device) 100 mls @ 50 mls/hr IVPB ASDIR PRN PRN Reason: FOR SERUM K+ 2.5 - 3.5 Magnesium Sulfate 1 gm/ Sodium (Chloride) 102 mls @ 102 mls/hr IV PRN PRN PRN Reason: MAG LEVEL 1.4 - 2.0 Magnesium Sulfate 2 gm/ Device 100 mls @ 100 mls/hr IVPB ASDIR PRN PRN Reason: MAGNESIUM < 1.4 Potassium Phosphate 9 mmol/ (Sodium Chloride) 103 mls @ 25.75 mls/hr IVPB ASDIR PRN PRN Reason: Phosphate 1.0-1.8 Potassium Phosphate 12 mmol/ (Sodium Chloride) 254 mls @ 63.5 mls/hr IV ASDIR PRN PRN Reason: Serum phosphate 0.5-0.9 Potassium Phosphate 15 mmol/ (Sodium Chloride) 255 mls @ 63.75 mls/hr IV ASDIR PRN PRN Reason: Serum Phos < 0.5 Sodium Chloride (Normal Saline 0.9%) 1,000 mls @ 30 mls/hr IV .Q24H [facility] Last Admin: 10/17/17 10:33 Dose: 1,000 mls Dexmedetomidine HCl 200 mcg/ (Sodium Chloride) 50 mls @ 0 mls/hr IVPB INF PRN; As Directed PRN Reason: AGITATION POST EXTUBATION Loratadine (Claritin) 10 mg PO DAILYPRN PRN PRN Reason: Sinus Symptoms Lorazepam (Ativan) 1 mg PO Q4H PRN PRN Reason: ASE >=9 Magnesium Oxide (Magnesium Oxide) 400 mg PO BIDPRN PRN PRN Reason: FOR SERUM MAG 1.4 - 2.0 Last Admin: 10/15/17 08:31 Dose: 400 mg Magnesium Oxide (Magnesium Oxide) 800 mg PO PRN PRN PRN Reason: FOR SERUM MAG < 1.4 Mineral Oil/White Petrolatum (Eucerin Cream) 0 gm TOP BIDPRN PRN PRN Reason: Dry Skin Mineral Oil/White Petrolatum (Lacri-Lube Ointment) 0 gm EA EYE PRN PRN PRN Reason: Dry Eyes Miscellaneous Medication (Phos-Nak) 1 pkt PO TIDPRN PRN PRN Reason: FOR PHOS LEVEL 1.0 - 1.8 Miscellaneous Medication (Phos-Nak) 2 pkt PO TIDPRN PRN PRN Reason: FOR PHOS LEVEL 0.5 - 1.0 Multivitamins (Theragran) 1 tab PO DAILY [facility] Last Admin: 10/17/17 08:43 Dose: 1 tab Nitroglycerin (Nitrostat) 0.4 mg PO Q5MIN PRN PRN Reason: Chest Pain Ondansetron HCl (Zofran Odt) 4 mg PO Q6H PRN PRN Reason: Nausea/Vomiting Ondansetron HCl (Zofran) 4 mg IVP Q6H PRN PRN Reason: Nausea/Vomiting Pantoprazole Sodium (Protonix) 40 mg IVP Q12HR [facility] Last Admin: 10/17/17 21:57 Dose: 40 mg Polyethylene Glycol (Miralax) 17 gm PO DAILY PRN PRN Reason: Constipation Potassium Chloride (K-Dur) 40 meq PO ASDIR PRN PRN Reason: FOR SERUM K+ 2.5 - 3.5 Potassium Chloride (Klor-Con) 40 meq PER TUBE ASDIR PRN PRN Reason: FOR SERUM K+ 2.5-3.5 Last Admin: 10/17/17 05:18 Dose: 40 meq Saccharomyces Boulardii (Florastor) 250 mg PO DAILY [facility] Last Admin: 10/17/17 08:42 Dose: 250 mg Simethicone (Mylicon Chewable) 80 mg PO PCHS PRN PRN Reason: Gas Pain Sodium Chloride (Flush - Normal Saline) 10 ml IVF Q12HR [facility] Last Admin: 10/17/17 08:44 Dose: 10 ml Sodium Chloride (Flush - Normal Saline) 10 ml IVF PRN PRN PRN Reason: Saline Flush Spironolactone (Aldactone) 25 mg PER TUBE BID-[facility] Last Admin: 10/17/17 17:13 Dose: 25 mg Thiamine HCl (Thiamine) 100 mg PO DAILY [facility] Last Admin: 10/17/17 08:42 Dose: 100 mg Tramadol HCl (Ultram) 50 mg PO Q8H PRN PRN Reason: Moderate Pain (4-6)
[2017-10-18] MEDS ORDERED: Sodium Chloride 0.9% 10 ML ONE (00:53)
[2017-10-18] MEDS: Furosemide 20 MG/2 ML VIAL SLOW IVP SCH (05:55)
[2017-10-18 06:21] LABS: Anion Gap 11 mmol/L (10-20); BUN (Urea Nitrogen) 19 mg/dL (8.4-25.7); Calc. Creatinine Clearance 108 mL/min (70-130); Calcium 8.7 mg/dL (7.8-10.44); Carbon Dioxide 30 mmol/L (23-31); Chloride 103 mmol/L (98-107); Estimated GFR-MDRD Greater than 90; Glucose 109 mg/dL (80-115); Magnesium 1.9 mg/dL (1.6-2.6); Potassium 4.3 mmol/L (3.5-5.1); Sodium 140 mmol/L (136-145)
[2017-10-18 07:00] LABS: Anisocytosis MODERATE=16-30 cells (100X) (0-5/hpf); Band 2 % (5-11); Hemoglobin 8.3 g/dL (14.0-18.0); Hypochromia SLIGHT = 6-15 cells (100X) (0-5/hpf); Lymphocytes 16 % (21-51); MDiff Complete? YES; Mean Corpuscular HGB CONC 29.8 g/dL (32.0-36.0); Mean Corpuscular Hemoglobin 24.4 pg (27.0-31.0); Mean Platelet Volume 6.4 fL (7.4-10.4); Monocytes 10 % (0-10); Neutrophil 72 % (42-75); Platelet Count 86 thou/uL (130-400); RBC Distribution Width 26.8 % (11.5-14.5); Red Blood Cell (RBC) Count 3.42 mill/uL (4.70-6.10); White Blood Cell (WBC) Count 7.8 thou/uL (4.8-10.8)
[2017-10-18] MEDS: Pantoprazole 40 MG VIAL IVP SCH ×2 (08:35→20:42)
[2017-10-18] MEDS: Clindamycin/D5W 600 MG in Premix Bag 1 BAG IVPB SCH ×4 (08:35→17:53)
[2017-10-18] MEDS: Saccharomyces boulardii 250 MG CAP PO SCH (08:36)
[2017-10-18] MEDS: Spironolactone 25 MG TAB PER TUBE SCH ×2 (08:36→16:08)
[2017-10-18] MEDS: Multivit, Therapeutic 1 TAB PO SCH (08:36)
[2017-10-18] MEDS: Cyanocobalamin (Vitamin B-12) 1,000 MCG TAB PO SCH (08:36)
[2017-10-18] MEDS: Folic Acid 1 MG TAB PO SCH (08:36)
[2017-10-18] MEDS: Sodium Chloride 0.9% 1,000 ML IV SCH (08:42)
--- NOTE | 2017-10-18 11:45 | PRG ---
DATE OF SERVICE: 10/18/2017 SERVICE: Pulmonary Medicine. INTERVAL HISTORY: The patient is doing fantastic from a respiratory standpoint. He is breathing com fortably. He is on room air with saturations were marginal at 92%. He denies any current fevers, ch ills, nausea or vomiting. No additional blood has been identified coming from anything. Otherwise, there have been no events overnight. He is tolerating p.o. beautifully and has cleared his clear liq uid on multiple occasions. PHYSICAL EXAMINATION: VITAL SIGNS: Afebrile, pulse 77, blood pressure 124/63, respirations 18, saturations 100% on 2 liter s nasal cannula. On room air, his saturations are 92%. GENERAL: The patient is awake and alert. He is in no apparent distress. LUNGS: Decent air entry bilaterally with no prolonged expiratory phase or wheezing. HEART: Normal rate, regular. ABDOMEN: Soft, nontender, nondistended. Bowel sounds are positive. MUSCULOSKELETAL: No cyanosis or clubbing. No pitting in the bilateral lower extremities. NEUROLOGIC: Grossly nonfocal. LABORATORY DATA: WBC 7.8, hemoglobin 8.3 and up trending, platelets 86,000. Basic metabolic profile is completely unremarkable with potassium that is normalized 4.3. Magnesium is also within normal l imits. Respiratory culture was unremarkable. Blood culture x2 and urine culture also negative. ASSESSMENT: 1. Acute blood loss anemia. 2. Peptic ulcer disease, stable. 3. Acute hypoxic respiratory failure, resolving. 4. Community-acquired pneumonia secondary to gross aspiration. 5. Chronic liver disease secondary to alcohol abuse. PLAN: The patient is stable for transition out of the ICU to the medical unit. Pulmonary Critical C are will continue to follow for the time being. We continue antibiotics, and oxygen needed if needed . That being said, if he is comfortable, I am happy with the saturations being above 88%.
--- NOTE | 2017-10-18 17:59 | PDOC.PN ---
- Subjective Encounter Start Date: 10/18/17 Encounter Start Time: 15:00 Patient seen and examined. No new complaints. No overnight events - Objective Resuscitation Status: Resuscitation Status FULL:Full Resuscitation MAR Reviewed: Yes Vital Signs & Weight: Vital Signs (12 hours) Temp Pulse Pulse Pulse Resp BP BP 10/18/17 16:58 99.3 F 83 20 10/18/17 16:45 99.3 F 83 20 10/18/17 08:53 75 78 122/59 L 124/63 10/18/17 08:00 97.6 F 77 18 BP Pulse Ox 10/18/17 16:58 107/56 L 100 10/18/17 16:45 100 10/18/17 08:53 10/18/17 08:00 99 Weight Admit Weight 172 lb 8 oz Weight 162 lb 14.746 oz Most Recent Monitor Data Heart Rate from ECG 83 NIBP 109/51 NIBP BP-Mean 63 Respiration from ECG 20 SpO2 100 I&O: 10/17/17 10/18/17 10/19/17 06:59 06:59 06:59 Intake Total 1011.5 2192 Output Total 5015 2425 720 Balance -4003.5 -233 -720 Result Diagrams: 10/18/17 05:38 10/18/17 05:38 Additional Labs: Accuchecks 10/17/17 10/17/17 23:23 17:13 POC Glucose 115 H 175 H Phys Exam - Physical Examination Constitutional: NAD Respiratory: no wheezing, no rhonchi Scat rales at bases Cardiovascular: RRR, no rub Gastrointestinal: soft Neurological: moves all 4 limbs Dx/Plan - Plan DVT proph w/SCDs IMPRESSION: 1. Acute on chronic gastrointestinal bleeding/Symptomatic anemia s/p EGD/4 units PRBC 2. Acute hypoxic resp failure/Sepsis due to multifocal Aspiration Pneumonia with Pleural effusions 3. Anemia due to GI blood loss. 4. Ascites/Coagulopathy/Splenomegaly secondary to alcoholic cirrhosis. 5. Abnormal EKG with elevated troponin secondary to severe anemia. 6. Hypokalemia/Hypomagnesemia/Cholelithiasis./Ongoing tobacco abuse. Counselled./Hyponatremia./ Metabolic acidosis secondary to elevated lactate./ Iron deficiency anemia./ Hypomagnessemia/Lactic acidosis, probably secondary to severe anemia. resolved PLAN: * Transfer to medical * in AM * Consult PT * Cont Clindamycin * Transfuse PRN if HH <7 * Cont IV Lasix with Spironolactone * Cont current meds as below * Monitor for alcohol withdrawal - on Ativan PRN for ASE >=9 Review of Systems - Review of Systems Respiratory: SOB with Excertion. negative: Cough, Dry, Shortness of Breath, Hemoptysis, Pleuritic Pain, Sputum, Wheezing Cardiovascular: negative: chest pain, palpitations, orthopnea, paroxysmal nocturnal dyspnea, edema, light headedness - Medications/Allergies Allergies/Adverse Reactions: Allergies Allergy/AdvReac Type Severity Reaction Status Date / Time No Known Allergies Allergy Verified 10/12/17 22:05 Medications: Current Medications Acetaminophen (Tylenol) 325 mg PO Q6H PRN PRN Reason: Headache/Fever or Pain Last Admin: 10/13/17 23:15 Dose: 325 mg Al Hydroxide/Mg Hydroxide (Maalox) 30 ml PO Q6H PRN PRN Reason: Heartburn or Indigestion Albuterol/Ipratropium (Duoneb) 3 ml NEB Q4H PRN PRN Reason: SOB &/or Wheezing Last Admin: 10/17/17 14:41 Dose: 3 ml Calcium Carbonate (Tums) 1,000 mg PO Q4H PRN PRN Reason: Heartburn or Indigestion Cyanocobalamin (Vitamin B-12) 1,000 mcg PO DAILY [facility] Last Admin: 10/18/17 08:36 Dose: 1,000 mcg Folic Acid (Folvite) 1 mg PO 0900 [facility] Last Admin: 10/18/17 08:36 Dose: 1 mg Furosemide (Lasix) 20 mg SLOW IVP 0900 [facility] Clindamycin Phosphate/Dextrose (600 mg/ Device) 50 mls @ 100 mls/hr IVPB 0200, 1000,1800 [facility] Last Admin: 10/18/17 17:53 Dose: 50 mls Loratadine (Claritin) 10 mg PO DAILYPRN PRN PRN Reason: Sinus Symptoms Lorazepam (Ativan) 1 mg PO Q4H PRN PRN Reason: ASE >=9 Mineral Oil/White Petrolatum (Eucerin Cream) 0 gm TOP BIDPRN PRN PRN Reason: Dry Skin Multivitamins (Theragran) 1 tab PO DAILY [facility] Last Admin: 10/18/17 08:36 Dose: 1 tab Nitroglycerin (Nitrostat) 0.4 mg PO Q5MIN PRN PRN Reason: Chest Pain Ondansetron HCl (Zofran Odt) 4 mg PO Q6H PRN PRN Reason: Nausea/Vomiting Ondansetron HCl (Zofran) 4 mg IVP Q6H PRN PRN Reason: Nausea/Vomiting Pantoprazole Sodium (Protonix) 40 mg IVP Q12HR [facility] Last Admin: 10/18/17 08:35 Dose: 40 mg Polyethylene Glycol (Miralax) 17 gm PO DAILY PRN PRN Reason: Constipation Saccharomyces Boulardii (Florastor) 250 mg PO DAILY [facility] Last Admin: 10/18/17 08:36 Dose: 250 mg Simethicone (Mylicon Chewable) 80 mg PO PCHS PRN PRN Reason: Gas Pain Sodium Chloride (Flush - Normal Saline) 10 ml IVF Q12HR [facility] Last Admin: 10/18/17 08:35 Dose: 10 ml Sodium Chloride (Flush - Normal Saline) 10 ml IVF PRN PRN PRN Reason: Saline Flush Spironolactone (Aldactone) 25 mg PER TUBE BID-[facility] Last Admin: 10/18/17 16:08 Dose: 25 mg Thiamine HCl (Thiamine) 100 mg PO DAILY [facility] Last Admin: 10/18/17 08:36 Dose: 100 mg Tramadol HCl (Ultram) 50 mg PO Q8H PRN PRN Reason: Moderate Pain (4-6)
[2017-10-19] MEDS: Clindamycin/D5W 600 MG in Premix Bag 1 BAG IVPB SCH (02:14)
[2017-10-19 06:06] LABS: Hemoglobin 8.4 g/dL (14.0-18.0)
[2017-10-19] MEDS ORDERED: Furosemide 20 MG/2 ML VIAL SLOW IVP SCH (09:00)
[2017-10-19] MEDS: Cyanocobalamin (Vitamin B-12) 1,000 MCG TAB PO SCH (09:14)
[2017-10-19] MEDS: Folic Acid 1 MG TAB PO SCH (09:14)
[2017-10-19] MEDS: Multivit, Therapeutic 1 TAB PO SCH (09:14)
[2017-10-19] MEDS: Spironolactone 25 MG TAB PER TUBE SCH ×2 (09:14→17:30)
[2017-10-19] MEDS: Pantoprazole 40 MG VIAL IVP SCH (09:15)
[2017-10-19] MEDS: Saccharomyces boulardii 250 MG CAP PO SCH (09:15)
--- NOTE | 2017-10-19 10:11 | PRG ---
DATE OF SERVICE: 10/19/2017 Mr. Sim is extubated. He is doing well. He is weak and is less short of breath. No more GI blee d. PHYSICAL EXAMINATION: VITAL SIGNS: Sats are 96 on 2 liters, respirations 20, temperature 98, blood pressure 108/59. CHEST: Chest reveals decreased breath sounds, bilateral crackles. CARDIAC: Normal S1, S2. No gallops. IMPRESSION: 1. Respiratory failure. 2. Adult respiratory distress syndrome. 3. Aspiration. 4. GI bleed. 5. Hepatitis. PLAN: Switch over to oral medication. X-ray, PT hopefully can be discharged home in the next 24-48 hours.
[2017-10-19 12:05] VITALS: BMI 25.9
--- NOTE | 2017-10-19 12:25 | RAD ---
PA AND LATERAL CHEST X-RAY: 10/19/2017 HISTORY: Pneumonia. COMPARISON: 10/17/2017 FINDINGS: There has been improvement in interstitial alveolar opacities bilaterally with greater improvement on the left. There are mild persistent increased interstitial opacities in the right mid lung zone, gr eater laterally. Interstitial and alveolar opacities at the left lung base have significantly improv ed and almost completely resolved. No new focal area of consolidation or pleural fluid is present. The cardiac silhouette is at the upper limits of normal in size. No other interval change. IMPRESSION: Improvement in bilateral interstitial and alveolar opacities with persistent interstitial densities o n the right. Findings may be related to improving pneumonia. Follow-up to complete resolution is barrera ggested. POS: AMPARO
--- NOTE | 2017-10-19 14:58 | PDOC.PN ---
- Subjective Encounter Start Date: 10/19/17 Encounter Start Time: 14:00 Patient seen and examined. No new complaints. No overnight events - Objective Resuscitation Status: Resuscitation Status FULL:Full Resuscitation MAR Reviewed: Yes Vital Signs & Weight: Vital Signs (12 hours) Temp Pulse Resp BP BP Pulse Ox 10/19/17 11:41 98.6 F 85 16 124/58 L 91 L 10/19/17 08:00 98.8 F 97 20 96 10/19/17 07:20 98.8 F 97 20 108/59 L 96 10/19/17 03:43 98.7 F 83 20 122/58 L 96 Weight Admit Weight 172 lb 8 oz Weight 171 lb Most Recent Monitor Data Heart Rate from ECG 83 NIBP 109/51 NIBP BP-Mean 63 Respiration from ECG 20 SpO2 100 I&O: 10/18/17 10/19/17 10/20/17 06:59 06:59 06:59 Intake Total 2192 400 Output Total 2425 720 Balance -233 -320 Result Diagrams: 10/19/17 05:44 10/20/17 05:43 Phys Exam - Physical Examination Constitutional: NAD Respiratory: no wheezing Scat rhonchi B/L with bibasilar rales Cardiovascular: RRR, no rub Gastrointestinal: soft, non-tender, positive bowel sounds Musculoskeletal: no edema Neurological: moves all 4 limbs Dx/Plan - Plan DVT proph w/SCDs IMPRESSION: 1. Acute on chronic gastrointestinal bleeding/Symptomatic anemia s/p EGD/4 units PRBC 2. Acute hypoxic resp failure/Sepsis due to multifocal Aspiration Pneumonia with Pleural effusions - improving 3. Anemia due to GI blood loss. 4. Ascites/Coagulopathy/Splenomegaly secondary to alcoholic cirrhosis. 5. Abnormal EKG with elevated troponin secondary to severe anemia. 6. Hypokalemia/Hypomagnesemia/Cholelithiasis./Ongoing tobacco abuse. Counselled./Hyponatremia./ Metabolic acidosis secondary to elevated lactate./ Iron deficiency anemia./ Hypomagnessemia/Lactic acidosis, probably secondary to severe anemia. resolved PLAN: * BMP in AM * Change PPI to PO * Atbx changed to PO * DC in AM if stable * Cotn Atbx * Cont Lasix with Spironolactone * Cont current meds as below * Monitor for alcohol withdrawal - on Ativan PRN for ASE >=9 * DC leger in AM Review of Systems - Review of Systems Respiratory: negative: Cough, Dry, Shortness of Breath, Hemoptysis, SOB with Excertion, Pleuritic Pain, Sputum, Wheezing Cardiovascular: negative: chest pain, palpitations, orthopnea, paroxysmal nocturnal dyspnea, edema, light headedness - Medications/Allergies Allergies/Adverse Reactions: Allergies Allergy/AdvReac Type Severity Reaction Status Date / Time No Known Allergies Allergy Verified 10/12/17 22:05 Medications: Current Medications Acetaminophen (Tylenol) 325 mg PO Q6H PRN PRN Reason: Headache/Fever or Pain Last Admin: 10/13/17 23:15 Dose: 325 mg Al Hydroxide/Mg Hydroxide (Maalox) 30 ml PO Q6H PRN PRN Reason: Heartburn or Indigestion Albuterol/Ipratropium (Duoneb) 3 ml NEB Q4H PRN PRN Reason: SOB &/or Wheezing Last Admin: 10/17/17 14:41 Dose: 3 ml Amoxicillin/Clavulanate Potassium (Augmentin) 500 mg PO Q12HR [facility] Calcium Carbonate (Tums) 1,000 mg PO Q4H PRN PRN Reason: Heartburn or Indigestion Cyanocobalamin (Vitamin B-12) 1,000 mcg PO DAILY [facility] Last Admin: 10/19/17 09:14 Dose: 1,000 mcg Folic Acid (Folvite) 1 mg PO 0900 [facility] Last Admin: 10/19/17 09:14 Dose: 1 mg Furosemide (Lasix) 20 mg PO DAILY [facility] Loratadine (Claritin) 10 mg PO DAILYPRN PRN PRN Reason: Sinus Symptoms Lorazepam (Ativan) 1 mg PO Q4H PRN PRN Reason: ASE >=9 Mineral Oil/White Petrolatum (Eucerin Cream) 0 gm TOP BIDPRN PRN PRN Reason: Dry Skin Multivitamins (Theragran) 1 tab PO DAILY [facility] Last Admin: 10/19/17 09:14 Dose: 1 tab Nitroglycerin (Nitrostat) 0.4 mg PO Q5MIN PRN PRN Reason: Chest Pain Ondansetron HCl (Zofran Odt) 4 mg PO Q6H PRN PRN Reason: Nausea/Vomiting Ondansetron HCl (Zofran) 4 mg IVP Q6H PRN PRN Reason: Nausea/Vomiting Pantoprazole Sodium (Protonix) 40 mg PO BID [facility] Polyethylene Glycol (Miralax) 17 gm PO DAILY PRN PRN Reason: Constipation Saccharomyces Boulardii (Florastor) 250 mg PO DAILY [facility] Last Admin: 10/19/17 09:15 Dose: 250 mg Simethicone (Mylicon Chewable) 80 mg PO PCHS PRN PRN Reason: Gas Pain Sodium Chloride (Flush - Normal Saline) 10 ml IVF Q12HR [facility] Last Admin: 10/19/17 09:15 Dose: 10 ml Sodium Chloride (Flush - Normal Saline) 10 ml IVF PRN PRN PRN Reason: Saline Flush Spironolactone (Aldactone) 25 mg PER TUBE BID-[facility] Last Admin: 10/19/17 09:14 Dose: 25 mg Thiamine HCl (Thiamine) 100 mg PO DAILY [facility] Last Admin: 10/19/17 09:15 Dose: 100 mg Tramadol HCl (Ultram) 50 mg PO Q8H PRN PRN Reason: Moderate Pain (4-6)
[2017-10-19] MEDS: Amoxicillin/Potassium Clav 500 MG TAB PO SCH (21:04)
[2017-10-20 06:24] LABS: Albumin 2.4 g/dL (3.4-4.8); Anion Gap 8 mmol/L (10-20); BUN (Urea Nitrogen) 14 mg/dL (8.4-25.7); BUN/Creatinine Ratio 19.72; Calc. Creatinine Clearance 116 mL/min (70-130); Carbon Dioxide 29 mmol/L (23-31); Chloride 104 mmol/L (98-107); Estimated GFR-MDRD Greater than 90; Glucose 97 mg/dL (80-115); Magnesium 1.4 mg/dL (1.6-2.6); Phosphorus 2.9 mg/dL (2.3-4.7); Potassium 3.4 mmol/L (3.5-5.1); Sodium 138 mmol/L (136-145)
[2017-10-20] MEDS ORDERED: Magnesium Sulfate 4 GM, Admixture Fee 1 EACH in Sodium Chloride 0.9% 250 ML 250 ML IVPB SCH (07:00)
[2017-10-20] MEDS ORDERED: Potassium Chloride 10 MEQ TAB PO SCH (08:00)
[2017-10-20] MEDS: Spironolactone 25 MG TAB PER TUBE SCH ×2 (08:07→16:19)
[2017-10-20] MEDS: Amoxicillin/Potassium Clav 500 MG TAB PO SCH (08:08)
[2017-10-20] MEDS: Multivit, Therapeutic 1 TAB PO SCH (08:09)
[2017-10-20] MEDS: Folic Acid 1 MG TAB PO SCH (08:09)
[2017-10-20] MEDS: Saccharomyces boulardii 250 MG CAP PO SCH (08:09)
[2017-10-20] MEDS: Cyanocobalamin (Vitamin B-12) 1,000 MCG TAB PO SCH (08:09)
[2017-10-20] MEDS ORDERED: Furosemide 20 MG TAB PO SCH (09:00)
--- NOTE | 2017-10-20 09:48 | PRG ---
DATE OF SERVICE: 10/20/2017 This morning he is awake, alert, responsive. He is better. No shortness of breath. PHYSICAL EXAMINATION: VITAL SIGNS: Sats 90% on 2 liters, temperature is 98, blood pressure 114/60. X-ray yesterday shows improvement in bilateral infiltrates, though still persist. CHEST: Chest reveals bilateral crackles. CARDIAC: Normal S1, S2. IMPRESSION: 1. Respiratory failure. 2. Adult respiratory distress syndrome. 3. Gastrointestinal bleed. 4. Alcohol abuse. PLAN: Could discharge home and follow up with his primary care physician. Pulmonary will see him as needed.
[2017-10-20 12:43] VITALS: TEMP 98.7
[2017-10-20 15:42] VITALS: BP 121/58
[2017-10-20] MEDS ORDERED: FLU VACC QS2017-18 36 mo. & older 0.5 ML SYRINGE IM ONE (16:15)
--- NOTE | 2017-10-20 19:30 | DIS ---
DATE OF DISCHARGE: 10/20/2017 DISCHARGE DISPOSITION: Home. FOLLOWUP: 1. Follow up with primary care physician at [facility] in 1 week. 2. Follow up with Dr. Shay Campa in 2-3 weeks. 3. A 2 liter fluid restriction with 2 gram salt restriction recommended. 4. Chest x-ray in 4 weeks. Primary care physician advised to follow. 5. BMP after 1 and 2 weeks. Primary care physician is advised to follow. 6. Primary care provider to refill Lasix and Aldactone next week. ALLERGIES: Patient denies any drug allergies. The patient was seen and examined on the day of discharge. Denies any new complaints. No chest pain , shortness of breath, palpitations. DISCHARGE MEDICATIONS: 1. Augmentin 500 mg b.i.d., 2. Lasix 20 mg daily. 3. Aldactone 25 mg b.i.d. 4. Thiamine, folic acid, multivitamin. 5. Protonix 40 mg b.i.d. 6. Vitamin B12 daily. INPATIENT CONSULTANTS: 1. Gastroenterology, Dr. Capma. 2. Critical Care, Dr. Quinn. BRIEF HOSPITAL COURSE: The patient is a 61-year-old male with cirrhosis with ongoing alcohol abuse, who presented to the hospital with generalized weakness with shortness of breath of 2 days duration. His workup in the emergency room was consistent with a hemoglobin of 4.7 with INR of 6 and PT of 19. 3. Please refer to the history and physical dated 10/12/2017 dictated by me for further details. The patient was admitted to the intermediate care unit with a diagnosis of severe symptomatic anemia secondary to acute on chronic gastrointestinal bleeding. He underwent EGD on the day of admission th at showed gastric antral vascular ectasia with mild intermittent active bleeding. There was also mod erately severe portal hypertensive gastropathy with severe erosive duodenitis. Protonix drip was con tinued. Octreotide drip was discontinued. He later developed worsening shortness of breath requirin g bronchoscopy and intubation. He was found to have aspiration pneumonia. He remained on mechanical ventilation, he was placed on clindamycin along with steroids. He was later extubated and was trans ferred to the medical floor. His repeat chest x-ray have shown improvement. He has received total o f 4 units PRBC. His H&H yesterday was 8.4. Lifestyle modification including alcohol cessation was e mphasized. He stated understanding. FINAL DIAGNOSES: 1. Acute on chronic gastrointestinal bleeding/symptomatic anemia, status post 4 units packed red blo od cells. 2. Acute hypoxic respiratory failure with sepsis due to multifocal aspiration pneumonia with pleural effusion, improved. 3. Anemia secondary to acute gastrointestinal blood loss. 4. Moderate to severe portal hypertensive gastropathy. 5. Severe erosive duodenitis. 6. 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 7. Ascites, coagulopathy, splenomegaly secondary to alcoholic cirrhosis. 8. Abnormal EKG with troponins in the indeterminate range. The patient had an echocardiogram that s howed ejection fraction of 50% to 55% with mild mitral regurgitation and mild tricuspid regurgitation . 9. Hypokalemia, replaced. 10. Hypomagnesemia, replaced. 11. Cholelithiasis. 12. Ongoing tobacco abuse. 13. Hyponatremia, corrected. 14. Metabolic acidosis with lactic acidosis of 6.7 on admission. Repeat lactic acid was 1.7 after h ydration. Plan of care was discussed with the patient in detail. He stated understanding. Alcohol cessation w as emphasized. Total time coordinating the discharge of this patient was 35 minutes. His prescriptions were sent to [facility] pharmacy. Please note that patient needs repeat labs including magnesium after 1 week as well as repeat at 2 we eks. Primary care physician is advised to follow. The patient also needs a repeat EGD after 3 weeks. Primary care physician advised to follow.
== END 2017-10-20 17:17 | disposition home or self-care (01) | DRG 853 ==
LOC: ERS 11:20 → SDC 14:04 → IMCU/EMU 21:37 → CCU 10-14 11:21 → ONC 10-18 16:56
PROVIDERS: ADMIT Internal Medicine; ATTEND Internal Medicine
PROC: 0W3P8ZZ Control Bleeding in Gastrointestinal Tract, Via Natural or Artificial Opening Endoscopic (ICD-10-PCS; 2017-10-12)
PROC: 0B9J8ZX Drainage of Left Lower Lung Lobe, Via Natural or Artificial Opening Endoscopic, Diagnostic (ICD-10-PCS; principal; 2017-10-14)
PROC: 0B9C8ZX Drainage of Right Upper Lung Lobe, Via Natural or Artificial Opening Endoscopic, Diagnostic (ICD-10-PCS; 2017-10-14)
PROC: 0B9G8ZX Drainage of Left Upper Lung Lobe, Via Natural or Artificial Opening Endoscopic, Diagnostic (ICD-10-PCS; 2017-10-14)
PROC: 0B9D8ZX Drainage of Right Middle Lung Lobe, Via Natural or Artificial Opening Endoscopic, Diagnostic (ICD-10-PCS; 2017-10-14)
PROC: 5A1945Z Respiratory Ventilation, 24-96 Consecutive Hours (ICD-10-PCS; 2017-10-14)
PROC: 0BH17EZ Insertion of Endotracheal Airway into Trachea, Via Natural or Artificial Opening (ICD-10-PCS; 2017-10-14)
PROC: 30243N1 Transfusion of Nonautologous Red Blood Cells into Central Vein, Percutaneous Approach (ICD-10-PCS; 2017-10-14)
PROC: 0BP1XDZ Removal of Intraluminal Device from Trachea, External Approach (ICD-10-PCS; 2017-10-16)
DX: A41.9 Sepsis, unspecified organism (principal); K31.811 Angiodysplasia of stomach and duodenum with bleeding; J69.0 Pneumonitis due to inhalation of food and vomit; E87.2 Acidosis; J80 Acute respiratory distress syndrome; J90 Pleural effusion, not elsewhere classified; K76.6 Portal hypertension; E87.1 Hypo-osmolality and hyponatremia; D62 Acute posthemorrhagic anemia; E83.42 Hypomagnesemia; I50.9 Heart failure, unspecified; K70.31 Alcoholic cirrhosis of liver with ascites; K75.9 Inflammatory liver disease, unspecified; R16.1 Splenomegaly, not elsewhere classified; I08.1 Rheumatic disorders of both mitral and tricuspid valves; K29.80 Duodenitis without bleeding; K31.89 Other diseases of stomach and duodenum; D50.0 Iron deficiency anemia secondary to blood loss (chronic); E87.6 Hypokalemia; K27.9 Peptic ulcer, site unspecified, unspecified as acute or chronic, without hemorrhage or perforation; I10 Essential (primary) hypertension; K80.20 Calculus of gallbladder without cholecystitis without obstruction; F10.20 Alcohol dependence, uncomplicated; F17.210 Nicotine dependence, cigarettes, uncomplicated; R79.1 Abnormal coagulation profile; R94.31 Abnormal electrocardiogram [ECG] [EKG]
CPT/HCPCS: 36415; 36416; 36430; 71045; 71046; 74177; 76705; 80048; 80053; 80069; 81003; 81015; 82105; 82274; 82550; 82553; 82728; 82805; 83540; 83550; 83605; 83690; 83735; 83880; 84100; 84484; 85014; 85018; 85025; 85060; 85610; 86677; 86704; 86706; 86708; 86803; 86850; 86900; 86901; 87040; 87070; 87086; 87205; 87340; 90471; 90682; 90732; 93005; 93306; 94002; 94003; 94640; 94760; 96365; 96368; 96375; A4216; C9113; G0008; G0009; G8978-GP-CN; G8979-GP-CI; J0696; J1940; J2001; J2060; J2250; J2270; J2354; J2543; J2704; J2916; J2920; J3010; J3475; J3480; J3490; J7050; J7620; P9016; Q2036

== ENCOUNTER 2017-12-18 07:02 | Day surgery (SDC) | payer OTHER ==
[2017-11-18 09:36] VITALS: BMI 21.7
[2017-12-18 07:37] LABS: #Basophils 0.1 thou/uL (0.0-0.2); #Eosinphils 0.2 thou/uL (0.0-0.7); #Lymphocytes 1.2 thou/uL (1.20-3.40); #Monocytes 0.4 thou/uL (0.11-0.59); #Neutrophils 2.6 thou/uL (1.40-6.50); %Basophils 1.4 % (0.0-1.0); %Eosinophils 3.5 % (0.0-10.0); %Lymphocytes 26.7 % (21.0-51.0); %Monocytes 10.1 % (0.0-10.0); %Neutrophils 58.4 % (42.0-75.0); Hemoglobin 6.5 g/dL (14.0-18.0); Mean Corpuscular HGB CONC 29.1 g/dL (32.0-36.0); Mean Corpuscular Volume 75.8 fl (80.0-94.0); Mean Platelet Volume 11.4 fL (7.4-10.4); Platelet Count 103 thou/uL (130-400); RBC Distribution Width 18.7 % (11.5-14.5); Red Blood Cell (RBC) Count 2.97 mill/uL (4.70-6.10); White Blood Cell (WBC) Count 4.4 thou/uL (4.8-10.8)
[2017-12-18 07:53] LABS: PTT 43.2 SEC (22.9-36.1)
[2017-12-18 07:56] LABS: ALT (SGPT) 13 U/L (8-55); AST (SGOT) 29 U/L (5-34); Albumin 3.6 g/dL (3.4-4.8); Alkaline Phosphatase 149 U/L (40-150); Anion Gap 13 mmol/L (10-20); BUN (Urea Nitrogen) 19 mg/dL (8.4-25.7); Bilirubin, Total 2.1 mg/dL (0.2-1.2); Calc. Creatinine Clearance 64 mL/min (70-130); Calcium 9.2 mg/dL (7.8-10.44); Carbon Dioxide 21 mmol/L (23-31); Chloride 104 mmol/L (98-107); Estimated GFR-MDRD 69; Globulin 3.1 g/dL (2.4-3.5); Glucose 113 mg/dL (80-115); Potassium 3.8 mmol/L (3.5-5.1); Protein, Total 6.7 g/dL (5.8-8.1); Sodium 134 mmol/L (136-145)
[2017-12-18 08:08] LABS: Prothrombin Time 16.6 SEC (12.0-14.7)
[2017-12-18 08:09] LABS: INR-International Normal Ratio 1.3
[2017-12-18 08:26] LABS: Hypochromia MODERATE=16-30 cells (100X) (0-5/hpf); MDiff Complete? YES; PLT Morphology Comment Appears Decreased; Polychromasia SLIGHT = 2-3 cells (100X) (0-2/hpf); Reflex for Review?? NO; Schistocytes SLIGHT = 2-5 cells (100X) (0-1/hpf)
--- NOTE | 2017-12-18 12:28 | OP ---
DATE OF PROCEDURE: 12/18/2017 PROCEDURE: Esophagogastroduodenoscopy with control of hemorrhage. PREOPERATIVE DIAGNOSES: Anemia of chronic gastrointestinal blood loss. Also, cirrhosis. His last d rink of alcohol was 10/11/2017. OPERATIVE NOTE: Informed consent was obtained from the patient. He was sedated with total intraveno us anesthesia. The bite block was placed and the endoscope was advanced easily to the second portion of the duodenum and retroflexion was performed in the stomach. The esophagus was normal. The GE ju nction was normal. There was moderate portal hypertensive gastropathy of the body and fundus. There was gastric antral vascular ectasia of the body and antrum. This was treated extensively with argon plasma coagulation. The pylorus and first and second portions of the duodenum were normal. IMPRESSION: 1. Portal hypertensive gastropathy. 2. 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 This was low volume bleeding. The active bleeding was all controlled with the argon plasma coagulation and t he gastric antral vascular ectasia was more extensively cauterized. RECOMMENDATIONS: 1. Transfusion today. Hemoglobin today was 6.5. 2. Repeat EGD in 3-4 weeks to treat the gastric antral vascular ectasia further. 3. Continue pantoprazole. 4. Follow up in the office in 1-2 weeks.
== END 2017-12-18 14:03 | disposition home or self-care (01) ==
LOC: SDC 07:02
PROVIDERS: ATTEND Internal Medicine Gastroenterology
PROC: 0W3P8ZZ Control Bleeding in Gastrointestinal Tract, Via Natural or Artificial Opening Endoscopic (ICD-10-PCS; principal; 2017-12-18)
DX: K76.6 Portal hypertension (principal); K31.89 Other diseases of stomach and duodenum; K31.811 Angiodysplasia of stomach and duodenum with bleeding; K74.60 Unspecified cirrhosis of liver; D50.0 Iron deficiency anemia secondary to blood loss (chronic); F17.210 Nicotine dependence, cigarettes, uncomplicated; Z79.899 Other long term (current) drug therapy
CPT/HCPCS: 36415; 36430; 80053; 85025; 85610; 85730; 86850; 86900; 86901; P9016

== ENCOUNTER 2018-02-09 05:56 | Day surgery (SDC) | payer OTHER ==
[2018-02-05 11:22] VITALS: BMI 22.8
--- NOTE | 2018-02-09 09:21 | OP ---
DATE OF PROCEDURE: 02/09/2018 SURGEON: Shay Campa M.D. PROCEDURE: Esophagogastroduodenoscopy with control of hemorrhage. PREOPERATIVE DIAGNOSES: Gastrointestinal bleed chronically secondary to gastric antral vascular ecta yumiko and portal hypertensive gastropathy. PROCEDURE IN DETAIL: Informed consent was obtained from the patient. He was sedated with total intr avenous anesthesia. The bite block was placed and the endoscope was advanced easily to the second po rtion of the duodenum and retroflexion was performed in the stomach. The esophagus was normal. Ther e were no esophageal varices. The body and fundus of the stomach had severe portal hypertensive umang ropathy. The gastric antral vascular ectasia noted by previous exams appears much better. There was still some active bleeding from these sites. This was again extensively cauterized. The second por tion of the duodenum had 3 AVMs which were cauterized also with argon plasma coagulation. IMPRESSION: 1. Severe portal hypertensive gastropathy in the body and fundus of the stomach. 2. Gastric antral vascular ectasia appears much better after previous treatments. This again was ex tensively cauterized with argon plasma coagulation. There were some actively bleeding sites controll ed at this point. 3. There were 3 arteriovenous malformations cauterized with APC in the first portion of the duodenum . RECOMMENDATIONS: 1. Iron supplementation. We will give iron sulfate 3 times daily. 2. Propranolol 10 mg 3 times a day. 3. Follow up in the GI Clinic.
[2018-02-09] MEDS ORDERED: PHENYLEPHRINE-NS 100 MCG/ML 10 ML SYRINGE ONE (13:40)
[2018-02-09] MEDS ORDERED: PROPOFOL 200 MG/20 ML VIAL ONE (13:40)
== END 2018-02-09 09:45 | disposition home or self-care (01) ==
LOC: SDC 05:56
PROVIDERS: ATTEND Internal Medicine Gastroenterology
PROC: 0W3P8ZZ Control Bleeding in Gastrointestinal Tract, Via Natural or Artificial Opening Endoscopic (ICD-10-PCS; principal; 2018-02-09)
DX: K31.811 Angiodysplasia of stomach and duodenum with bleeding (principal); K76.6 Portal hypertension; K31.89 Other diseases of stomach and duodenum; Q27.33 Arteriovenous malformation of digestive system vessel; Z79.899 Other long term (current) drug therapy
CPT/HCPCS: J2704